=== PATIENT | female | born 1950 | race Caucasian/White ===

== ENCOUNTER → 2017-01-10 | Outpatient (CLI) | payer BC, MEDICARE, OTHER ==
[~2017-01-10] MED LIST: ALLOPURINOL300 MG PO; AMITIZA24 MCG PO; B 12 SQ; CIPRO 500MG TA500 MG PO; CLIMARA 0.1 PATCH.WK TD; CLIMARA0.05 MG/24 TD; DOMPERIDONE; FLONASE NASAL S16 GM NS; GLUCOSAMINE PO; HCTZ 25MG TAB25 MG PO; LOPRESSOR 225 MG/TAB PO; LOPRESSOR 550 MG/TAB PO; LUTEIN20 MG PO; NEXIUM 40MG40 MG PO; NEXIUM40 MG PO; OMEGA 31000 MG PO; SODIUM BICARBO650 MG PO; UROCIT; UROCIT-K 1010 MEQ PO; VITAMIN D 50,1.25 MG PO; ZOFRAN 4MG T4 MG/TAB PO; ZYLOPRIM 300MG300 MG PO; ZYRTEC 10MG PO; ZYRTEC 10MG10 MG PO; [UNRECOGNIZED DRUG - CODE] PO; [UNRECOGNIZED DRUG - OTHER] PO
== END ==
LOC: COL.RAD 07:18
DX: R10.2 Pelvic and perineal pain (principal); R14.0 Abdominal distension (gaseous); Z90.710 Acquired absence of both cervix and uterus

== ENCOUNTER 2019-11-30 13:00 | Outpatient (RCR) | payer MEDICARE, OTHER ==
[2019-11-29 16:20] VITALS: BP 107/64; PULSE 66; TEMP 98
[2019-11-30] VITALS (10 sets, daily range): BP systolic 89–115; BP diastolic 52–74; PULSE 60–66; TEMP 98.4–98.7
[~2019-11-30] VITALS: Ht 167.6 cm; Wt 64.0 kg
[~2019-11-30 13:00] MED LIST changes: +ALDACTONE 25MG25 M1 PO; +BILBERRY EXTRAC80 MG PO; +BONIVA150 MG PO; +K-DUR 10 MEQ T10 MEQ PO; +MASON NATURAL2000 IU PO; +NATURAL E400 IU PO; +NEURONTIN100 MG/CAP PO; +PRILOSEC 20MG20 MG PO; +RESTASIS 60VL OU; +SYNTHROID 0.10.15 MG PO; +TAMBOCOR 1100 MG/TAB PO; +TOPROL XL 50MG50 MG PO; +TUMS500 MG PO; +ZINC SO4 PO
== END 2019-11-30 18:16 | disposition home or self-care (01) ==
LOC: EUO 13:00
DX: D72.819 Decreased white blood cell count, unspecified (principal); D64.9 Anemia, unspecified
CPT/HCPCS: J7050; P9040

== ENCOUNTER 2020-01-07 12:59 | Outpatient (RCR) | payer MEDICARE, OTHER ==
[2020-01-07] VITALS (10 sets, daily range): BP systolic 81–116; BP diastolic 53–73; PULSE 60–68; TEMP 97.7–97.8
[~2020-01-07] VITALS: Ht 167.6 cm; Wt 46.0 kg
== END 2020-01-07 17:44 | disposition home or self-care (01) ==
LOC: EUO 12:59
DX: D46.A Refractory cytopenia with multilineage dysplasia (principal)
CPT/HCPCS: J7050; P9040

== ENCOUNTER → 2020-01-17 | Outpatient (CLI) | payer MEDICARE, OTHER ==
--- NOTE | 2020-01-13 09:32 | NUR ---
lmom of all information and asked for a return call
[~2020-01-17] VITALS: Ht 167.6 cm; Wt 63.7 kg
[~2020-01-17] MED LIST changes: +CELEBREX 1100 MG/CAP PO
[2020-01-17 13:43] VITALS: BP 108/66; PULSE 67
[2020-01-17 14:30] VITALS: BP 109/66; PULSE 67
[2020-01-17 14:45] VITALS: BP 110/56; PULSE 63
[2020-01-17 15:00] VITALS: BP 95/58; PULSE 67
[2020-01-17 15:30] VITALS: BP 95/60; PULSE 62
== END ==
LOC: COL.RAD 13:00
DX: M48.062 Spinal stenosis, lumbar region with neurogenic claudication (principal); M47.816 Spondylosis without myelopathy or radiculopathy, lumbar region; M51.17 Intervertebral disc disorders with radiculopathy, lumbosacral region; M51.16 Intervertebral disc disorders with radiculopathy, lumbar region
CPT/HCPCS: Q9965

== ENCOUNTER 2020-01-24 13:56 | Emergency (ER) | payer MEDICARE, OTHER ==
[~2020-01-24] VITALS: Ht 170.2 cm; Wt 60.9 kg
[2020-01-24 14:12] VITALS: TEMP 98.7
[2020-01-24 15:00] LABS: MEAN CELL VOLUME 100 fl (80.0-100.0); MEAN CORPUSCULAR HEMOGLOBIN 34 pg (27.0-31.0); MEAN CORPUSCULAR HGB CONC 33 g/dl (33.0-37.0); MEAN PLATELET VOLUME 10.2 fl (7.4-10.4); PLATELET COUNT 281 K/mm3 (130-400); PROTHROMBIN TIME 10.7 SECONDS (9.7-12.8); RED BLOOD COUNT 2.98 M/mm3 (4.10-5.30); REDCELL DISTRIBUTION WIDTH-CV 21.3 % (11.5-14.5)
[2020-01-24 15:03] LABS: PARTIAL THROMBOPLASTIN TIME 32.9 SECONDS (26.0-37.0)
[2020-01-24 15:05] LABS: HEMATOCRIT 29.9 % (37.0-47.0)
[2020-01-24 15:07] LABS: ALANINE AMINOTRANSFERASE 24 U/L (4-34); ALBUMIN 4.6 gm/dL (3.5-5.0); ALKALINE PHOSPHATASE 102 U/L (50-136); ANION GAP 11 mmol/L (7-16); AST,SGOT 29 U/L (15-37); BILIRUBIN,TOTAL 0.6 mg/dL (0.0-1.0); BLOOD UREA NITROGEN 20 mg/dL (7-17); CALCIUM 9.3 mg/dL (8.4-10.2); CARBON DIOXIDE 23 mmol/L (22-30); CHLORIDE 98 mmol/L (98-107); CREATININE, serum 0.96 (0.52-1.25); GLUCOSE 102 mg/dL (74-106); POTASSIUM 3.7 mmol/L (3.4-5.0); SODIUM 132 mmol/L (137-145); TOTAL PROTEIN 7.3 gm/dL (6.4-8.2)
[2020-01-24 15:10] LABS: C-REACTIVE PROTEIN < 0.5 mg/dL (0.0-0.9)
[2020-01-24 15:18] LABS: TROPONIN-I < 0.012 ng/mL (0.000-0.035)
[2020-01-24 15:36] LABS: BAND 6 % (0-10); LYMPHOCYTE 54 % (20.0-51.0); NEUTROPHILS 34 % (42.0-75.2)
[2020-01-24 15:37] LABS: ANISOCYTOSIS 2+; HYPOCHROMIA 1+; PLATELET ESTIMATE NORMAL (NORMAL)
[2020-01-24] MEDS ORDERED: NORCO 325 MG-51 TAB PO (16:35)
[2020-01-24] MEDS ORDERED: OMNICEF 300MG300 MG PO (16:35)
[2020-01-24] MEDS ORDERED: NYSTATIN OR100 MU/ML PO (16:35)
[2020-01-24 17:52] VITALS: BP 105/71; PULSE 77
== END 2020-01-24 17:52 | disposition home or self-care (01) ==
LOC: COL.ER 13:56
PROVIDERS: Emergency Medicine
DX: G97.1 Other reaction to spinal and lumbar puncture (principal); D46.9 Myelodysplastic syndrome, unspecified; D70.9 Neutropenia, unspecified; I10 Essential (primary) hypertension; E03.9 Hypothyroidism, unspecified; Z86.79 Personal history of other diseases of the circulatory system; Z88.8 Allergy status to other drugs, medicaments and biological substances; Z88.5 Allergy status to narcotic agent
CPT/HCPCS: J0696; J2060; J2405; J3010; J7030

== ENCOUNTER 2020-02-17 14:31 | Outpatient (RCR) | payer MEDICARE, OTHER ==
[2020-02-17] VITALS (9 sets, daily range): BP systolic 91–109; BP diastolic 63–72; PULSE 64–91; TEMP 97.7–98.7
[~2020-02-17] VITALS: Ht 170.2 cm; Wt 63.9 kg
[~2020-02-17 14:31] MED LIST changes: +NORCO 325 MG-51 TAB PO; +NYSTATIN OR100 MU/ML PO; +OMNICEF 300MG300 MG PO; -SYNTHROID 0.10.15 MG PO; +SYNTHROID0.175 MG PO; +TOPROL XL 25MG25 MG PO; -TOPROL XL 50MG50 MG PO
== END 2020-02-17 18:34 | disposition home or self-care (01) ==
LOC: EUO 14:31
DX: D46.A Refractory cytopenia with multilineage dysplasia (principal); D72.819 Decreased white blood cell count, unspecified
CPT/HCPCS: J7050; P9040

== ENCOUNTER 2020-03-25 13:02 | Outpatient (RCR) | payer MEDICARE, OTHER ==
[~2020-03-25] VITALS: Ht 170.2 cm; Wt 62.5 kg
[2020-03-25] VITALS (9 sets, daily range): BP systolic 81–107; BP diastolic 46–66; PULSE 60–76; TEMP 97.5–98.2
[2020-03-25] MEDS ORDERED: SYNTHROID0.2 MG/TAB PO (13:46)
[2020-03-25] MEDS ORDERED: LYRICA200 MG PO (13:48)
--- NOTE | 2020-03-25 14:45 | NUR ---
First unit of irradiated PRBC's started at 60ml/hr, verified by CRISTINA Stoddard. Patient sitting up in bed eating sandwich. Denies needs or concerns.
--- NOTE | 2020-03-25 14:59 | NUR ---
Patient tolerates initial 15 minutes of transfusion without complications. Rate increased to 150mL/hr. Patient denies additional needs.
--- NOTE | 2020-03-25 15:44 | NUR ---
Patient lying in bed with eyes closed. Respirations even and unlabored. No signs or symptoms of discomfort noted at this time.
--- NOTE | 2020-03-25 16:33 | NUR ---
Patient tolerates first unit of blood without complications. Begin second unit of irradiated PRBC's, verified by CRISTINA Stoddard. Patient resting in bed with eyes closed. Says that she feels good. Closes eyes and goes to sleep. Denies additional needs.
--- NOTE | 2020-03-25 16:43 | NUR ---
Patient tolerates intial 15 minutes of second blood transfusion without complications. Rate increased to 150mL/hr.
--- NOTE | 2020-03-25 18:09 | NUR ---
Sitting up in bed, just finished dinner. Patient says that she is feeling good at this time. Denies additional needs.
--- NOTE | 2020-03-25 18:25 | NUR ---
Infusion completed. Patient tolerates without complications. Patient spouse in parking lot to pick patient up. IV dc'd, see intervention. Patient assisted out via wheel chair.
--- NOTE | 2020-03-25 18:38 | NUR ---
Patient assisted out to POV via wheelchair with all belongings.
== END 2020-03-25 18:38 | disposition home or self-care (01) ==
LOC: EUO 13:02 → JCC 13:11 → EUO 18:38
DX: D46.A Refractory cytopenia with multilineage dysplasia (principal)
CPT/HCPCS: OP; J7050; P9040

== ENCOUNTER 2020-05-04 20:26 | Inpatient (IN) | payer MEDICARE, OTHER ==
[~2020-05-04] VITALS: Ht 170.2 cm; Wt 63.5 kg
[~2020-05-04 20:26] MED LIST changes: +LYRICA200 MG PO
[2020-05-04 22:24] LABS: COLLECTION METHOD CATHETER
[2020-05-04 22:27] LABS: MEAN CELL VOLUME 106 fl (80.0-100.0); MEAN CORPUSCULAR HGB CONC 33 g/dl (33.0-37.0); MEAN PLATELET VOLUME 12.5 fl (7.4-10.4); PLATELET COUNT 147 K/mm3 (130-400); RED BLOOD COUNT 2.42 M/mm3 (4.10-5.30); REDCELL DISTRIBUTION WIDTH-CV 18.6 % (11.5-14.5)
[2020-05-04 22:46] LABS: BUDDING YEAST Present /hpf; MUCOUS Present /lpf; PH 6 (5-8); SQUAMOUS EPITHELIAL 0-2 /hpf; URINE APPEARANCE Clear; URINE BACTERIA None Seen /hpf; URINE BILIRUBIN Negative (NEGATIVE); URINE BLOOD Negative (NEGATIVE); URINE COLOR Yellow; URINE GLUCOSE Negative (NEGATIVE); URINE KETONE Negative (NEGATIVE); URINE LEUKOCYTE ESTERASE Trace (NEGATIVE); URINE NITRATE Negative (NEGATIVE); URINE PROTEIN(semi-quant) 2+ (NEGATIVE); URINE RBC 0-2 /hpf; URINE UROBILINOGEN Negative (NEGATIVE)
[2020-05-04 22:48] LABS: ALBUMIN 3.8 gm/dL (3.5-5.0); BILIRUBIN,TOTAL 0.7 mg/dL (0.0-1.0); CREATININE, serum 1.77 (0.52-1.25); HEMATOCRIT 25.7 % (37.0-47.0); HEMOGLOBIN 8.4 g/dl (12.5-16.0); MEAN CORPUSCULAR HEMOGLOBIN 35 pg (27.0-31.0); POTASSIUM 4.3 mmol/L (3.4-5.0); TOTAL PROTEIN 6.9 gm/dL (6.4-8.2)
[2020-05-04 23:04] LABS: ANISOCYTOSIS 1+; BAND 11 % (0-10); HYPOCHROMIA 1+; LYMPHOCYTE 4 % (20.0-51.0); NEUTROPHILS 77 % (42.0-75.2); PLATELET ESTIMATE NORMAL (NORMAL)
[2020-05-04 23:05] LABS: OVALOCYTES 1+; STOMATOCYTE 1+
[2020-05-04 23:09] LABS: C-REACTIVE PROTEIN 20.5 mg/dL (0.0-0.9)
[2020-05-05] VITALS (7 sets, daily range): BP systolic 89–111; BP diastolic 58–70; PULSE 69–87; TEMP 98–99.8
--- NOTE | 2020-05-05 04:00 | NUR ---
Patient up from ER. Alert and oriented x 3. Assessment complete. Patient oriented to room. INT to RAC without complicatins. Novak to DD with clear yellow urine present. Patient denie pain at this time. SCDs to BLE. Tele placed on patient. Denies furhter needs at this time.
--- NOTE | 2020-05-05 06:05 | NUR ---
Patient doing well throughout the night. Novak maintained to DD with clear yellow urine present. Fluids infusing per orders. Denies further needs at this time. Will report off to night warehouse manager.
[2020-05-05 07:09] LABS: BASO % 0.9 % (0.0-2.0); EOS # 0.1 (0.0-0.7); EOS % 3.1 % (0-4.0); GRAN # 2.2 (1.4-6.5); GRAN % 68.9 % (42.2-75.2); LYMPH # 0.3 (1.2-3.4); LYMPH % 10.2 % (20.0-51.0); MEAN CORPUSCULAR HGB CONC 32 g/dl (33.0-37.0); MEAN PLATELET VOLUME 11.9 fl (7.4-10.4); MONO # 0.5 (0.1-0.6); MONO % 16.6 % (1.7-9.3); PLATELET COUNT 133 K/mm3 (130-400); RED BLOOD COUNT 2.06 M/mm3 (4.10-5.30); REDCELL DISTRIBUTION WIDTH-CV 18.6 % (11.5-14.5)
[2020-05-05 07:11] LABS: HEMATOCRIT 22.8 % (37.0-47.0); HEMOGLOBIN 7.2 g/dl (12.5-16.0); MEAN CELL VOLUME 111 fl (80.0-100.0); MEAN CORPUSCULAR HEMOGLOBIN 35 pg (27.0-31.0)
[2020-05-05 07:13] LABS: CALCIUM 8.4 mg/dL (8.4-10.2); CREATININE, serum 1.42 (0.52-1.25)
--- NOTE | 2020-05-05 08:03 | NUR ---
Pt sleepy and talks with quiet voice. She reports that she has not felt well since Friday. Diet has decreased and has also not had a bowel movement. She does report her stomach having a burning feeling that wraps around and then goes up towards her throat. Tylenol given as she also reports starting to get a headache. She has ordered some breakfast. Informed her to use the call light if she needs to use the restroom. Call light within reach.
--- NOTE | 2020-05-05 09:45 | NUR ---
Pt has been up to the commode, but was not able to have a bowel movement. Morning medications given. Discussed trying to see her , informed her I would coordinate with her 's nurse. No other needs, will continue to monitor
--- NOTE | 2020-05-05 11:08 | NUR ---
Card Fixer attended clinical rounds with the team. Specialist the patient sees are Dr. Serra and Dr. Rushing. Oncology consulted. PT/OT ordered.
[2020-05-05 13:08] LABS: HEMATOCRIT 25.6 % (37.0-47.0); HEMOGLOBIN 8.1 g/dl (12.5-16.0)
--- NOTE | 2020-05-05 14:33 | NUR ---
Pt feeling nauseated at this time. Zofran offered and given. Pts son is with her at this time. No other needs, will continue to monitor.
--- NOTE | 2020-05-05 15:40 | NUR ---
Tile And Marble Setter met with the patient and the patient's son, Brooks to complete intake. The patient lives in [place] with her , Byron. The patient has been wheelchair bound about for the last week. The patient receives assistance from Byron. The patient receives medications and medical care at [facility]. The patient does not have advanced directives and was no not interested in DPOA-HC form at this time. MARIE discussed the discharge plan and post acute rehab. The patient was agreeance to sending a referral to [facility]. She did not want to send any other referrals at this time. MARIE consulted [facility] Director. Jennie reports she cannot make any decisions or admissions until Friday. MARIE collaborated the above information with the patient's nurse.
--- NOTE | 2020-05-05 18:01 | NUR ---
Pt doing well at this time. She is tired and states that she hopes she is able to sleep tonight. She reports going the last several nights with no sleep. Tylenol given for fever and feeling hot/cold. Son and getting ready to leave for the night. No other issues, will continue to monitor
[2020-05-05 18:36] LABS: FOLATE (FOLIC ACID) 11.1 ng/mL (7.0-31.4)
--- NOTE | 2020-05-05 20:00 | NUR ---
Report received, assumed care for shift coordinator. Assessment complete. A&Ox3. VS remain stable. Denies pain/nausea/shortness of breath. Assisted up to bathroom with 2 assist/gait belt/walker. Tolerated well but continuous coaching needed to pick of feet. States her lower extemities are very mumb and coaching helps. Plan of care discussed for this shift to include HS meds/antibiotics/IV fluids/calling for questions/concerns. Verbalizes understanding/denies questions/concerns. Call light in reach. Will monitor.
[2020-05-05 20:10] LABS: HEMOGLOBIN 7.3 g/dl (12.5-16.0)
[2020-05-05] MEDS ORDERED: ATIVAN 1MG T1 MG/TAB PO (20:37)
--- NOTE | 2020-05-05 20:45 | NUR ---
Pt requesting Ativan-states she acuña been prescribed it few months ago and it helps her feel less anxious/rest better. Hospitalist-TOÑA Regan notified-new orders received. This nurse to room to discuss with patient and she is already sleeping. Will hold one time dose for later.
[2020-05-06] VITALS (8 sets, daily range): BP systolic 98–121; BP diastolic 54–74; PULSE 57–90; TEMP 97.8–98.8
--- NOTE | 2020-05-06 | NUR ---
Called stating she slept well for two hours but is wide awake with anxiety due to sleeping alone. Ativan ordered for HS given per dr order.
--- NOTE | 2020-05-06 02:27 | NUR ---
Resting eyes closed. NO s/s of pain/discomfort noted.
--- NOTE | 2020-05-06 06:38 | NUR ---
Rested well this shift after receiving ativan dose. Denied pain/nausea/shortness of breath. VS remained stable. Call light within reach. Will continue to monitor.
[2020-05-06 07:13] LABS: MEAN CELL VOLUME 110 fl (80.0-100.0); MEAN CORPUSCULAR HGB CONC 32 g/dl (33.0-37.0); MEAN PLATELET VOLUME 12.9 fl (7.4-10.4); PLATELET COUNT 127 K/mm3 (130-400); RED BLOOD COUNT 2.01 M/mm3 (4.10-5.30); REDCELL DISTRIBUTION WIDTH-CV 18.6 % (11.5-14.5)
[2020-05-06 07:15] LABS: HEMOGLOBIN 7.1 g/dl (12.5-16.0); MEAN CORPUSCULAR HEMOGLOBIN 35 pg (27.0-31.0)
[2020-05-06 07:20] LABS: ALBUMIN 2.9 gm/dL (3.5-5.0); BILIRUBIN,TOTAL 0.6 mg/dL (0.0-1.0); CALCIUM 8.4 mg/dL (8.4-10.2); CREATININE, serum 1.16 (0.52-1.25); POTASSIUM 4.1 mmol/L (3.4-5.0); TOTAL PROTEIN 5.6 gm/dL (6.4-8.2)
--- NOTE | 2020-05-06 08:00 | NUR ---
Pt sitting up in the chair upon entering room. She has her breakfast with her. She did ambulate to the restroom and then to the chair. She reports feeling better this morning.
--- NOTE | 2020-05-06 11:01 | NUR ---
PT in working with patient. Blood started at this time at 60ml/hr.
--- NOTE | 2020-05-06 13:15 | NUR ---
Pt continues to do well, blood infusing. She continues to eat lunch slowly. at bedside. Dr Rushing has been in to see patient. No needs verbalized, will continue to monitor
--- NOTE | 2020-05-06 13:16 | NUR ---
First visit from the intensivist. No needs right now.
--- NOTE | 2020-05-06 14:10 | NUR ---
Blood finished at this time. Pt tolerated with no signs of reaction.
[2020-05-06 14:36] LABS: HEMATOCRIT 26.9 % (37.0-47.0); HEMOGLOBIN 8.8 g/dl (12.5-16.0)
--- NOTE | 2020-05-06 15:02 | NUR ---
Scarlet removed, assisted pt to the restroom. She did well with one assist. Call light within reach
--- NOTE | 2020-05-06 15:36 | NUR ---
Pt back in bed. She did void while she was in the restroom, no hat in place yet as boss was just removed prior to this. No complaints, will continue to monitor
--- NOTE | 2020-05-06 20:00 | NUR ---
Report received, assumed care for date night sitter. Assessment complete. VS stable. A&Ox3. Denies shortness of breath/nausea. States pain has increased to bilat lower extremities since lyrica dose was reduced. Denies pain otherwise. Has been voiding since boss cath DCd. Plan of care discussed for this shift to include HS meds/antibiotics/calling for questions/concerns. Verbalizes understanding. Call light in reach. Will monitor.
--- NOTE | 2020-05-06 20:01 | NUR ---
Called requesting an ativan stating hurt feet are bothering her and she is getting very anxious. Hospitalist-TOÑA Regan notified and new orders received.
[2020-05-07 00:02] VITALS: BP 119/71; PULSE 64; TEMP 98.4
[2020-05-07 04:30] VITALS: BP 121/68; PULSE 85; TEMP 98.9
[2020-05-07 06:38] LABS: MEAN CORPUSCULAR HGB CONC 32 g/dl (33.0-37.0); MEAN PLATELET VOLUME 12.7 fl (7.4-10.4); PLATELET COUNT 146 K/mm3 (130-400); RED BLOOD COUNT 2.57 M/mm3 (4.10-5.30); REDCELL DISTRIBUTION WIDTH-CV 22.8 % (11.5-14.5)
[2020-05-07 06:41] LABS: CALCIUM 8.7 mg/dL (8.4-10.2); CREATININE, serum 1.08 (0.52-1.25); POTASSIUM 3.8 mmol/L (3.4-5.0)
[2020-05-07 07:12] LABS: HEMATOCRIT 26.3 % (37.0-47.0); HEMOGLOBIN 8.5 g/dl (12.5-16.0); MEAN CELL VOLUME 102 fl (80.0-100.0); MEAN CORPUSCULAR HEMOGLOBIN 33 pg (27.0-31.0)
[2020-05-07 07:24] VITALS: BP 126/74; PULSE 75; TEMP 97.9
--- NOTE | 2020-05-07 07:42 | NUR ---
PT LAYING IN BED AT THIS TIME. DENIES ANY DISCOMFORT, DOES STATE SHE HAS A MILD HEADACHE. ASSESSMENT COMPLETED. NO FURTHER CONCERNS AT THIS TIME. CALL LIGHT WITHIN REACH.
[2020-05-07 11:12] VITALS: BP 113/75; PULSE 78; TEMP 97.8
[2020-05-07 12:31] LABS: AMYLASE 89 U/L (30-110); LIPASE 200 U/L (23-300)
[2020-05-07 15:55] VITALS: BP 128/82; PULSE 80; TEMP 97.9
[2020-05-07 19:28] VITALS: BP 117/65; PULSE 105; TEMP 97.7
--- NOTE | 2020-05-07 19:51 | NUR ---
PT HAD UNEVENTFUL DAY. NO CONCERNS. REPORT GIVEN CRISTINA IBARRA.
--- NOTE | 2020-05-07 20:29 | NUR ---
Patient sitting up in bed and watching TV upon enter the room. Shift assessment completed. Patient alert and oriented. Patient denies chest pain, SOB, N/V, or dizziness. Patient reports chronic bilateral feet pain 05/24. Scheduled Lyrica and other meds given per MAY. Encouraged patient to call the nurse if pain gets worse. Patient verbalized understanding. Assisted patient to go to bathroom. Patient ambulates with a walker with unsteady gait. 1 person maximum assist needed for transfer. Call light within reach. Patient denies further needs at this time.
[2020-05-08 00:10] VITALS: BP 122/75; PULSE 84; TEMP 98
[2020-05-08 03:46] VITALS: BP 119/74; PULSE 85; TEMP 97.8
[2020-05-08 06:49] LABS: MEAN CELL VOLUME 102 fl (80.0-100.0); MEAN CORPUSCULAR HGB CONC 32 g/dl (33.0-37.0); MEAN PLATELET VOLUME 12.7 fl (7.4-10.4); PLATELET COUNT 168 K/mm3 (130-400); RED BLOOD COUNT 2.64 M/mm3 (4.10-5.30)
[2020-05-08 06:59] LABS: CALCIUM 8.8 mg/dL (8.4-10.2); CREATININE, serum 1.02 (0.52-1.25); POTASSIUM 3.8 mmol/L (3.4-5.0)
[2020-05-08 07:38] LABS: HEMOGLOBIN 8.7 g/dl (12.5-16.0); MEAN CORPUSCULAR HEMOGLOBIN 33 pg (27.0-31.0)
[2020-05-08 07:39] VITALS: BP 124/70; PULSE 79; TEMP 97.9
[2020-05-08 08:25] LABS: ANISOCYTOSIS 1+; BAND 4 % (0-10); EOSINOPHIL 7 % (0-4); LYMPHOCYTE 33 % (20.0-51.0); NEUTROPHILS 41 % (42.0-75.2); PLATELET ESTIMATE NORMAL (NORMAL)
--- NOTE | 2020-05-08 09:03 | NUR ---
Pt doing well this morning. She states that she didn't get much sleep as she kept waking up. PT and OT have both worked with her. She is NPO for procedure, currently sitting up in the chair. Pills given with a sip of water. No other needs, will continue to monitor
--- NOTE | 2020-05-08 10:35 | NUR ---
Initial visit; Patient thanked Furniture Finisher Apprentice for offering prayer and God's blessings. Furniture Finisher Apprentice will keep Shelley in her prayers.
[2020-05-08 11:06] VITALS: BP 111/70; PULSE 85; TEMP 97.6
--- NOTE | 2020-05-08 11:48 | NUR ---
Pt continues to do well, will continue to monitor
--- NOTE | 2020-05-08 12:44 | NUR ---
Hair Assistant collaborated with Jennie, IPR Director who met with patient and can tentatively accept. SW will continue to follow.
--- NOTE | 2020-05-08 14:55 | NUR ---
Pt off the floor for MRI and LP
--- NOTE | 2020-05-08 17:15 | NUR ---
Pt back from MRI/LP around 1700. She is alert and oriented. in the room. She stated that she is cold, warm blanket given to her. Reminded that she needs to lay flat for an hour, so until 1800. No questions, will continue to monitor
[2020-05-08 17:39] LABS: CSF APPEARANCE CLEAR; CSF COLOR COLORLESS
[2020-05-08 17:40] LABS: CSF RBC 13 /mm3 (0-0)
--- NOTE | 2020-05-08 17:53 | NUR ---
IV right forearm did not flush and patient reported that it was hurting when I attempted to flush. New IV started by CRISTINA Russell
[2020-05-08 18:22] LABS: TOTAL PROTEIN,CSF 94 mg/dL (15-45)
[2020-05-08 19:43] VITALS: BP 100/65; PULSE 129; TEMP 97.5
[2020-05-08 19:56] LABS: CSF MONONUCLEAR 49 % (70-100); CSF POLYMORPHONUCLEAR 1 % (0-6)
--- NOTE | 2020-05-08 20:00 | NUR ---
Assessment complete. Robinson currently at bedside; Patient is awake in bed, alert and oriented. She complains of severe neuropathy pain in her feet and legs. HR is tachy and regular, lungs are clear, no edema is present. Zosyn currently infusing into left forearm IV. No new concerns, call light in reach.
[2020-05-08 23:47] VITALS: BP 108/67; PULSE 90; TEMP 98
[2020-05-09 03:26] VITALS: BP 121/76; PULSE 81; TEMP 97.7
--- NOTE | 2020-05-09 07:00 | NUR ---
bedside shift report received from CRISTINA Jin
[2020-05-09 07:01] LABS: MEAN CELL VOLUME 104 fl (80.0-100.0); MEAN CORPUSCULAR HGB CONC 32 g/dl (33.0-37.0); MEAN PLATELET VOLUME 12.4 fl (7.4-10.4); PLATELET COUNT 181 K/mm3 (130-400); RED BLOOD COUNT 2.53 M/mm3 (4.10-5.30); REDCELL DISTRIBUTION WIDTH-CV 21.4 % (11.5-14.5)
[2020-05-09 07:09] LABS: HEMATOCRIT 26.2 % (37.0-47.0); HEMOGLOBIN 8.3 g/dl (12.5-16.0); MEAN CORPUSCULAR HEMOGLOBIN 33 pg (27.0-31.0)
[2020-05-09 07:19] LABS: CALCIUM 8.6 mg/dL (8.4-10.2); CREATININE, serum 1.11 (0.52-1.25); POTASSIUM 3.8 mmol/L (3.4-5.0)
[2020-05-09 07:35] VITALS: BP 114/67; PULSE 111; TEMP 97.5
--- NOTE | 2020-05-09 08:20 | NUR ---
awake resting in bed, earlier had large loose diarrhea stool, will have breakfst
--- NOTE | 2020-05-09 09:15 | NUR ---
physical therapy was in and worked with patient, she states she felt a little less weak today, is now resting in chair, full assessment completed, see interventions for further info,
--- NOTE | 2020-05-09 10:32 | NUR ---
UNSTACKER in and assisting her with taking a shower
[2020-05-09 10:51] LABS: ANISOCYTOSIS 2+; PLATELET ESTIMATE NORMAL (NORMAL)
[2020-05-09 10:53] LABS: HYPOCHROMIA 2+
--- NOTE | 2020-05-09 11:00 | NUR ---
back to bed after shower
--- NOTE | 2020-05-09 11:15 | NUR ---
Dr Dominique in to see patient
[2020-05-09 11:16] LABS: EOSINOPHIL 14 % (0-4)
[2020-05-09 11:17] LABS: BAND 5 % (0-10); LYMPHOCYTE 35 % (20.0-51.0)
[2020-05-09 11:18] LABS: BASOPHIL 2 % (0-2); NEUTROPHILS 31 % (42.0-75.2)
[2020-05-09 11:40] VITALS: BP 126/77; PULSE 77; TEMP 97.5
--- NOTE | 2020-05-09 12:00 | NUR ---
appears to be dozing, in bed with eyes closed, resp quiet and easy, at bedside
--- NOTE | 2020-05-09 13:10 | NUR ---
appears to be sleeping, at bedside and said he tried to wake her and she didn't wake up, called her name and shook her shoulder and she aroused quickly, encouraged to have lunch
--- NOTE | 2020-05-09 13:30 | NUR ---
occuapation therapy in visiting with patient
[2020-05-09 14:10] LABS: ANGIOTENSIN CONVERTING ENZYME 30 U/L (16 - 85)
--- NOTE | 2020-05-09 14:58 | NUR ---
in bed visiting with and watching TV
--- NOTE | 2020-05-09 15:58 | NUR ---
in bed talking on phone, denies needs
[2020-05-09 16:00] VITALS: BP 98/62; PULSE 110; TEMP 97.3
--- NOTE | 2020-05-09 17:02 | NUR ---
Rn Enterostomal attended clinical rounds with the team. Due to high census, [facility] cannot accept patient at this time. SW followed up with patient and patient's , Ray about other rehab options. Patient and Ray state that they will not consider any rehab options with limited visitation policies. SW contacted the three local SNFs and reviewed their visitation policies with patient and Ray who decline to have referrals sent there. SW discussed [facility] as they are currently allowing one visitor daily per patient. Patient is agreeable to have referral sent. MARIE contacted Alba at [facility] and gave referral. SW will continue to follow.
[2020-05-09 18:43] LABS: CADMIUM BLOOD <0.2 ng/mL (<5.0); LEAD,SERUM** <1.0 mcg/dL (<5.0); MERCURY,SERUM <1 ng/mL (<10)
--- NOTE | 2020-05-09 18:57 | NUR ---
bedside shift report given to CRISTINA Pascal
[2020-05-09 19:29] VITALS: BP 117/70; PULSE 90; TEMP 98
--- NOTE | 2020-05-09 20:23 | NUR ---
Shift assessment completed and charted. Patient alert and oriented. Patient denies chest pain, SOB/dyspnea, or N/V. Patient reports she has chronic pain to her feet. Rating pain 7-8 out of 10 at this time. Scheduled pain med given. Patient reported she had loose stool this morning and requested to hold stool softner tonight. Amitiza not given per patient request. Ice-water provided per patient request. Call light within reach. Patient denies further needs at this time.
[2020-05-10 20:00] VITALS: BP 97/66; PULSE 104; TEMP 97.6
[2020-05-10 21:25] LABS: KAPPA FREE LIGHT CHAIN-SERUM 36.34 mg/L (()); KAPPA LAMBDA RATIO 1.12 ratio (())
[2020-05-10 21:25] LABS: HSV 2 DNA PCR QUAL Not Detected (())
[2020-05-11] VITALS (12 sets, daily range): BP systolic 110–138; BP diastolic 61–75; PULSE 79–111; TEMP 97.4–99.8
[2020-05-11 07:12] LABS: MEAN CELL VOLUME 104 fl (80.0-100.0); MEAN CORPUSCULAR HGB CONC 32 g/dl (33.0-37.0); MEAN PLATELET VOLUME 12.1 fl (7.4-10.4); PLATELET COUNT 249 K/mm3 (130-400); RED BLOOD COUNT 2.86 M/mm3 (4.10-5.30)
[2020-05-11 07:17] LABS: HEMATOCRIT 29.6 % (37.0-47.0); HEMOGLOBIN 9.4 g/dl (12.5-16.0); MEAN CORPUSCULAR HEMOGLOBIN 33 pg (27.0-31.0)
[2020-05-11 07:33] LABS: CALCIUM 8.8 mg/dL (8.4-10.2); CREATININE, serum 1.03 (0.52-1.25); POTASSIUM 3.8 mmol/L (3.4-5.0)
[2020-05-11 07:58] LABS: BAND 13 % (0-10); LYMPHOCYTE 7 % (20.0-51.0); NEUTROPHILS 78 % (42.0-75.2)
[2020-05-11 07:59] LABS: HYPOCHROMIA 2+; PLATELET ESTIMATE NORMAL (NORMAL)
[2020-05-11 08:00] LABS: ANISOCYTOSIS 2+
--- NOTE | 2020-05-11 08:30 | NUR ---
Patient sitting up in bed, A&Ox3. VSS. IV CDI. Reports pain in legs that she always has. Nurse assisted with breakfast tray. No further needs expressed from the patient. Call light within reach. Bed alarm on
--- NOTE | 2020-05-11 08:59 | NUR ---
(late entry 05/10) Director Of Intelligence contacted Alba with [facility] regarding referral. The team was to review the referral.
[2020-05-11 10:16] LABS: LYME DISEASE ANTIBODIES Negative (Negative)
[2020-05-11 14:41] LABS: CREATININE, serum 0.86 (0.52-1.25); POTASSIUM 3.8 mmol/L (3.4-5.0)
[2020-05-11 14:47] LABS: CREATININE, serum 0.99 (0.52-1.25); POTASSIUM 3.9 mmol/L (3.4-5.0)
--- NOTE | 2020-05-11 16:15 | NUR ---
Alba with [facility] reports they cannot accept the patient for post acute rehab.
--- NOTE | 2020-05-11 18:24 | NUR ---
Patient had an uneventful day, has been at the bedside most of the shift. A&Ox4. VSS. IV CDI, fluids infusing. Started IGG infusion and tolerating well. No further needs expressed from the patient. Call light within reach
[2020-05-11 23:11] LABS: HEMATOCRIT 29.8 % (37.0-47.0); HEMOGLOBIN 9.5 g/dl (12.5-16.0); MEAN CELL VOLUME 105 fl (80.0-100.0); MEAN CORPUSCULAR HEMOGLOBIN 34 pg (27.0-31.0); MEAN CORPUSCULAR HGB CONC 32 g/dl (33.0-37.0); PLATELET COUNT 216 K/mm3 (130-400); RED BLOOD COUNT 2.83 M/mm3 (4.10-5.30); REDCELL DISTRIBUTION WIDTH-CV 21.3 % (11.5-14.5)
[2020-05-11 23:12] LABS: BAND 23 % (0-10); MEAN PLATELET VOLUME 12.3 fl (7.4-10.4)
[2020-05-11 23:13] LABS: ANISOCYTOSIS 1+; EOSINOPHIL 4 % (0-4); HYPOCHROMIA 1+; LYMPHOCYTE 4 % (20.0-51.0); MICROCYTOSIS 1+; NEUTROPHILS 65 % (42.0-75.2); PLATELET ESTIMATE NORMAL (NORMAL)
[2020-05-11 23:16] LABS: RED BLOOD COUNT 2.93 M/mm3 (4.10-5.30)
[2020-05-11 23:17] LABS: BASO # 0.1 (0.0-0.2); BASO % 0.5 % (0.0-2.0); EOS # 0.3 (0.0-0.7); EOS % 1.9 % (0-4.0); HEMOGLOBIN 9.8 g/dl (12.5-16.0); LYMPH # 0.8 (1.2-3.4); LYMPH % 4.5 % (20.0-51.0); MEAN CELL VOLUME 106 fl (80.0-100.0); MEAN CORPUSCULAR HEMOGLOBIN 33 pg (27.0-31.0); MEAN CORPUSCULAR HGB CONC 32 g/dl (33.0-37.0); MEAN PLATELET VOLUME 11.6 fl (7.4-10.4); MONO # 0.5 (0.1-0.6); MONO % 2.9 % (1.7-9.3); PLATELET COUNT 222 K/mm3 (130-400); REDCELL DISTRIBUTION WIDTH-CV 21.3 % (11.5-14.5)
[2020-05-12] VITALS (12 sets, daily range): BP systolic 87–136; BP diastolic 61–83; PULSE 76–109; TEMP 97.4–98.5
[2020-05-12 06:24] LABS: ALBUMIN 3.5 gm/dL (3.5-5.0); BILIRUBIN,TOTAL 0.4 mg/dL (0.0-1.0); CALCIUM 8.8 mg/dL (8.4-10.2); CREATININE, serum 1.07 (0.52-1.25); TOTAL PROTEIN 7.1 gm/dL (6.4-8.2)
[2020-05-12 07:14] LABS: RED BLOOD COUNT 2.77 M/mm3 (4.10-5.30)
[2020-05-12 07:15] LABS: HEMATOCRIT 28.5 % (37.0-47.0); HEMOGLOBIN 9.1 g/dl (12.5-16.0); MEAN CELL VOLUME 103 fl (80.0-100.0); MEAN CORPUSCULAR HEMOGLOBIN 33 pg (27.0-31.0); MEAN CORPUSCULAR HGB CONC 32 g/dl (33.0-37.0); MEAN PLATELET VOLUME 11.8 fl (7.4-10.4); PLATELET COUNT 248 K/mm3 (130-400); REDCELL DISTRIBUTION WIDTH-CV 20.4 % (11.5-14.5)
--- NOTE | 2020-05-12 07:16 | NUR ---
Pt resting with eyes closed, even non labored breathing
[2020-05-12 07:39] LABS: BAND 41 % (0-10); LYMPHOCYTE 20 % (20.0-51.0); NEUTROPHILS 31 % (42.0-75.2)
[2020-05-12 07:40] LABS: ANISOCYTOSIS 2+
[2020-05-12 07:41] LABS: PLATELET ESTIMATE NORMAL (NORMAL)
--- NOTE | 2020-05-12 09:33 | NUR ---
Maren in placing PICC at this time
--- NOTE | 2020-05-12 10:43 | NUR ---
Picc line has been placed. Patient was wanting to take a shower. PT and OT in working with patient right now.
[2020-05-12 11:21] LABS: BETA GLOBULINS (PEP) 0.8 g/dL (0.7-1.2)
--- NOTE | 2020-05-12 11:30 | NUR ---
IVIG started at this time.
--- NOTE | 2020-05-12 11:44 | NUR ---
Dr Mock in to see patient. VSS, at bedside, no questions, will continue to monitor
--- NOTE | 2020-05-12 13:48 | NUR ---
Primary nurse was assisted with [id number] patient care by [facility] ADN student Margie Vásquez and [facility] instructor Barbie Solis RN-BC
--- NOTE | 2020-05-12 18:50 | NUR ---
Pt doing well, no needs verbalized, report given
--- NOTE | 2020-05-12 20:00 | NUR ---
Bedside shift report received from Hayley. Patient is currently awake in bed, at bedside. She is alert and oriented with complaints of leg/feet neuropathy pain 10/10. No edema is present. She ambulates with assistance of 1 with gaitbelt and walker to the restroom. Lung sounds are clear, heart rate is regular rhythm with tachycardic rate. Call light in reach and comfort measures provided. SCD's on bilaterally. Will continue to monitor.
[2020-05-13] VITALS (11 sets, daily range): BP systolic 104–134; BP diastolic 66–77; PULSE 79–116; TEMP 97.7–102.5
[2020-05-13 06:50] LABS: MEAN CELL VOLUME 106 fl (80.0-100.0); MEAN CORPUSCULAR HGB CONC 31 g/dl (33.0-37.0); PLATELET COUNT 225 K/mm3 (130-400); RED BLOOD COUNT 2.74 M/mm3 (4.10-5.30); REDCELL DISTRIBUTION WIDTH-CV 20.4 % (11.5-14.5)
[2020-05-13 07:13] LABS: HEMATOCRIT 29.1 % (37.0-47.0); MEAN CORPUSCULAR HEMOGLOBIN 33 pg (27.0-31.0)
[2020-05-13 07:49] LABS: ANISOCYTOSIS 3+; EOSINOPHIL 7 % (0-4); HYPOCHROMIA 3+; LYMPHOCYTE 8 % (20.0-51.0); NEUTROPHILS 78 % (42.0-75.2); PLATELET ESTIMATE NORMAL (NORMAL)
--- NOTE | 2020-05-13 09:55 | NUR ---
IG started at this time. 156/98, pulse 107, temp 97.6, resp 16. Pt was sitting up in the chair prior to getting it started but reported feeling a little nauseated. Assisted back to bed, reports feeling better. at bedside, will continue to monitor
--- NOTE | 2020-05-13 11:10 | NUR ---
Pt resting with her eyes closed, even non labored breathing. IG increased to 60ml/hr
--- NOTE | 2020-05-13 12:55 | NUR ---
Pt has not been eating much of her meals. She states that she just isn't hungry and nothing tastes good. Encouraged her to eat at least something. Offered protein shakes, she stated that she does not like anything with milk. She stated that the ensure clear tasted okay. One ordered at this time.
--- NOTE | 2020-05-13 16:54 | NUR ---
Pt doing well today. She continues to have the pain in her feet and legs, reports that the Lyrica helps. She continues to have a decreased appetite but is drinking the clear ensure. has been present most of the day. No needs verbalized, will continue to monitor
--- NOTE | 2020-05-13 21:00 | NUR ---
Patient's oral temperature is 102.5 at this time. PRN Tylenol administered. SHILA Wyman notified; New orders obtained for rapid COVID swab, chest xray, blood cultures, and UA. Droplet/contact isolation precautions initiated until tests result. Patient has generalized body aches, her face is flushed, and she is experiencing severe chills. Patient denies new onset SOA or cough. Will continue to monitor.
[2020-05-13 23:29] LABS: COLLECTION METHOD CLEAN CATCH
[2020-05-13 23:37] LABS: MUCOUS Present /lpf; PH 5 (5-8); SQUAMOUS EPITHELIAL 0-2 /hpf; URINE APPEARANCE Turbid; URINE BACTERIA Moderate /hpf; URINE BILIRUBIN Negative (NEGATIVE); URINE BLOOD 1+ (NEGATIVE); URINE COLOR Yellow; URINE GLUCOSE Negative (NEGATIVE); URINE KETONE Negative (NEGATIVE); URINE LEUKOCYTE ESTERASE 3+ (NEGATIVE); URINE NITRATE Negative (NEGATIVE); URINE PROTEIN(semi-quant) 3+ (NEGATIVE); URINE UROBILINOGEN Negative (NEGATIVE); URINE WBC >50 /hpf
[2020-05-14 00:10] VITALS: BP 114/74; PULSE 88; TEMP 99.7
[2020-05-14 04:33] VITALS: BP 130/82; PULSE 87; TEMP 98.9
--- NOTE | 2020-05-14 06:32 | NUR ---
Patient has had complaints of body aches and a headache throughout the night. This, along with fevers, have been treated with Tylenol. Patient states she also had an episode of nausea overnight which has subsided without medication. Patient currently sleeping in bed. Call light in reach.
[2020-05-14 07:32] VITALS: BP 110/64; PULSE 85; TEMP 98.7
[2020-05-14 07:42] LABS: HEMOGLOBIN 9.7 g/dl (12.5-16.0); MEAN CELL VOLUME 102 fl (80.0-100.0); MEAN CORPUSCULAR HEMOGLOBIN 33 pg (27.0-31.0); MEAN CORPUSCULAR HGB CONC 32 g/dl (33.0-37.0); MEAN PLATELET VOLUME 11.5 fl (7.4-10.4); PLATELET COUNT 217 K/mm3 (130-400); RED BLOOD COUNT 2.93 M/mm3 (4.10-5.30); REDCELL DISTRIBUTION WIDTH-CV 19.9 % (11.5-14.5)
[2020-05-14 07:52] LABS: CALCIUM 8.3 mg/dL (8.4-10.2); CREATININE, serum 1.21 (0.52-1.25); POTASSIUM 4.1 mmol/L (3.4-5.0)
--- NOTE | 2020-05-14 08:31 | NUR ---
Pt awake and alert upon entry, sitting up in bed, no C/O pain at this time. Shift assessments complete, left Pt in bed lowest position, call light in reach.
[2020-05-14 11:15] VITALS: BP 117/72; PULSE 75; TEMP 98
[2020-05-14 16:22] VITALS: BP 123/78; PULSE 78; TEMP 100.4
[2020-05-14 19:32] VITALS: BP 102/64; PULSE 80; TEMP 97.5
--- NOTE | 2020-05-14 20:28 | NUR ---
Patient laying in bed and watching TV upon enter the room. Patient alert and oriented. Patient reports neropathy pain to her bilateral feet 10/24. Scheduled Lyrica given per MAY. Held Metoprolol for SBP <110. VS stable. No fever at this time. Ice-water provided per patient request. Call light within reach. Patient denies further needs at this time.
[2020-05-15] VITALS (12 sets, daily range): BP systolic 97–129; BP diastolic 67–80; PULSE 73–80; TEMP 97.4–98.6
[2020-05-15 06:21] LABS: MEAN CELL VOLUME 104 fl (80.0-100.0); MEAN CORPUSCULAR HGB CONC 32 g/dl (33.0-37.0); MEAN PLATELET VOLUME 11.6 fl (7.4-10.4); PLATELET COUNT 224 K/mm3 (130-400); RED BLOOD COUNT 2.66 M/mm3 (4.10-5.30); REDCELL DISTRIBUTION WIDTH-CV 19.5 % (11.5-14.5)
[2020-05-15 06:25] LABS: HEMATOCRIT 27.6 % (37.0-47.0); HEMOGLOBIN 8.7 g/dl (12.5-16.0); MEAN CORPUSCULAR HEMOGLOBIN 33 pg (27.0-31.0)
[2020-05-15 06:37] LABS: CALCIUM 8.6 mg/dL (8.4-10.2); CREATININE, serum 1.15 (0.52-1.25); POTASSIUM 4.1 mmol/L (3.4-5.0)
[2020-05-15 07:20] LABS: BAND 8 % (0-10); EOSINOPHIL 5 % (0-4); LYMPHOCYTE 32 % (20.0-51.0); NEUTROPHILS 49 % (42.0-75.2)
[2020-05-15 07:21] LABS: PLATELET ESTIMATE NORMAL (NORMAL)
[2020-05-15] MEDS ORDERED: DIFLUCAN 100MG100 MG PO (09:04)
[2020-05-15] MEDS ORDERED: TYLENOL 325MG325 MG PO (09:07)
[2020-05-15] MEDS ORDERED: ATIVAN 0.50.5 MG/TAB PO (09:08)
[2020-05-15] MEDS ORDERED: AMITRIPTYLINE H25 M1 PO (09:08)
[2020-05-15] MEDS ORDERED: OMNICEF 300MG300 MG PO (09:10)
--- NOTE | 2020-05-15 09:27 | NUR ---
PT C/O NAUSEA W/O VOMITING, ZOFRAN PO GIVEN PER PRN ORDER. PT DENIES CRACKERS AND SPRITE.
--- NOTE | 2020-05-15 09:59 | NUR ---
The patient is to discharge today, 05/15, to [facility]. No additional needs at this time.
--- NOTE | 2020-05-15 10:40 | NUR ---
VITALS TAKEN, IVIG STARTED ON PT, EDUCATED ON S/S TO LOOK OUT FOR LIKE SOB, PAIN IN LOWER BACK, FEELING FLUSHED OR ITCHY. PT DENIES SYMPTOMS AT THIS TIME. STAYED WITH PT FOR FIRST 10 MIN OF INFUSION. IN ROOM W/ PT. NO OTHER NEEDS
--- NOTE | 2020-05-15 10:43 | NUR ---
started pt's IVIG treatment. Pt BP was lower than in am, Jen DING notified and ordered a recheck in 30min to follow up.
--- NOTE | 2020-05-15 11:14 | NUR ---
COFFEE BROUGHT TO PT PER REQUEST, IVIG RATE CHANGED PER PROTOCOL, VITALS DOCUMENTED.
--- NOTE | 2020-05-15 11:14 | NUR ---
PT PLEASANT, OFFERS C/O NEUROPATHIC PAIN BILATERAL FEET, RATING AT 3/10 WHEN FEET ARE STILL, 8/10 WHEN MOVING. TAKING LYRICA WITH NOTABLE IMPROVEMENT. NO C/O OR NEEDS VOICED.
[2020-05-15 12:20] LABS: IMMUNOFIXATION (PEP) NO
--- NOTE | 2020-05-15 14:04 | NUR ---
ivig finished infusing, will call report to ipr.
--- NOTE | 2020-05-15 14:51 | NUR ---
REPORT CALLED, PT BELONGINGS GATHERED, PT TAKEN DOWN TO IPR VIA WHEELCHAIR. NO OTHER NEEDS
[2020-05-16 15:15] LABS: .COPPER,S <0.10 mcg/mL (())
[2020-05-18 11:31] LABS: VITAMIN B1 107 nmol/L (70-180)
[2020-11-17] MEDS ORDERED: NORCO 325 MG-51 TAB PO (11:44)
== END 2020-05-15 15:15 | DRG 872 ==
LOC: COL.ER 20:26 → MEDICAL 05-05 01:09
PROVIDERS: Emergency Medicine; Family Medicine; Hospitalist; Internal Medicine Nephrology; Nurse Practitioner Family; Physician Assistant; Psychiatry & Neurology Neurology; ADMIT Student in an Organized Health Care Education/Training Program
PROC: 02HV33Z Insertion of Infusion Device into Superior Vena Cava, Percutaneous Approach (ICD-10-PCS; principal; 2020-05-12)
DX: A41.9 Sepsis, unspecified organism (principal); G61.81 Chronic inflammatory demyelinating polyneuritis; N39.0 Urinary tract infection, site not specified; N17.9 Acute kidney failure, unspecified; E87.1 Hypo-osmolality and hyponatremia; I47.1 Supraventricular tachycardia; D84.9 Immunodeficiency, unspecified; G62.9 Polyneuropathy, unspecified; Z20.822 Contact with and (suspected) exposure to COVID-19; D53.9 Nutritional anemia, unspecified; D46.9 Myelodysplastic syndrome, unspecified; N18.2 Chronic kidney disease, stage 2 (mild); I12.9 Hypertensive chronic kidney disease with stage 1 through stage 4 chronic kidney disease, or unspecified chronic kidney disease; K21.9 Gastro-esophageal reflux disease without esophagitis; G43.909 Migraine, unspecified, not intractable, without status migrainosus; I73.00 Raynaud's syndrome without gangrene; K59.09 Other constipation; M81.0 Age-related osteoporosis without current pathological fracture; E03.9 Hypothyroidism, unspecified; Z88.6 Allergy status to analgesic agent; Z88.8 Allergy status to other drugs, medicaments and biological substances
CPT/HCPCS: 99222-AI; 99231-AI; 99232-AI; 99233-AI; 99239; C1751; J0696; J1447; J1569; J2405; J2543; J3370; J7030; J7050; P9040

== ENCOUNTER 2020-05-15 10:56 | Inpatient (IN) | payer MEDICARE, OTHER ==
[~2020-05-15] VITALS: Ht 170.2 cm; Wt 57.7 kg
[~2020-05-15 10:56] MED LIST changes: +AMITRIPTYLINE H25 M1 PO; +ATIVAN 0.50.5 MG/TAB PO; +ATIVAN 1MG T1 MG/TAB PO; +DIFLUCAN 100MG100 MG PO; +TYLENOL 325MG325 MG PO
[2020-05-15 16:43] VITALS: BP 109/66; PULSE 78; TEMP 98.9
[2020-05-15 18:00] VITALS: BP 109/66; PULSE 78; TEMP 98.8
--- NOTE | 2020-05-15 19:56 | NUR ---
PT TRANSPORTED VIA WC FROM MEDICAL UNIT TO ROOM 339 AROUND 1515. PT ORIENTED TO UNIT AND MED REC COMPLETED. PT DENIES PAIN AND WAS MADE COMFORTABLE.
[2020-05-16 03:47] VITALS: BP 112/60; PULSE 88; TEMP 98.6
--- NOTE | 2020-05-16 05:58 | NUR ---
PT RESTED THROUGH OUT NIGHT, UP TO VOID W NURSE ASST WALKER AND GAIT BELT. UNSTEADY GAIT. PAIN MANAGED W CURRENT SCHEDULED REGIMEN. NEEDS MET.
--- NOTE | 2020-05-16 10:52 | NUR ---
Patient and resting in recliner awaiting PT at this time. Patient was given prn zofran to help with nausea at this time. Patient was also given mirlax due to some constipation. Will continue to monitor.
--- NOTE | 2020-05-16 15:44 | NUR ---
Traffic Coordinator met with patient to complete intake as she is new to [facility]. Patient's , Byron (ph#[phone]) is at bedside. Patient lives in [place] with Byron and receives primary care/medications at [facility]. Patient states she has struggled the last couple of months and had to borrow a cane and walker from a couple families she attends congregational with. Patient does not have Advance Directives and was not interested in completing DPOA-HC at this time. Patient reports she is very happy to be in IPR and Byron agreed stating that patient is doing much better mentally now that she has moved over to IPR. SW will continue to follow.
[2020-05-16 17:49] VITALS: BP 115/65; PULSE 100; TEMP 99.2
--- NOTE | 2020-05-16 19:30 | NUR ---
RECEIVED CHANGE OF SHIFT REPORT FROM DAY SHIFT NURSE. BED ALARM ON.
--- NOTE | 2020-05-16 20:58 | NUR ---
Patient attended all therapies this shift. She is very unsteady with standing. She received AFO's to bilateral ankles due to the right ankle turning in on her when she stands and weakness with the left ankle. Patient's will be picking up some longer socks to wear under the AFO's and will drop off tomorrow. Patient currently resting in bed, call light in reach and bed alarm is set. Reported off to night nurse.
[2020-05-16 22:33] VITALS: BP 118/86
[2020-05-17 05:07] VITALS: BP 119/72; PULSE 80; TEMP 98.6
[2020-05-17 07:13] LABS: MEAN CELL VOLUME 103 fl (80.0-100.0); MEAN CORPUSCULAR HGB CONC 32 g/dl (33.0-37.0); PLATELET COUNT 210 K/mm3 (130-400); RED BLOOD COUNT 2.68 M/mm3 (4.10-5.30); REDCELL DISTRIBUTION WIDTH-CV 18.9 % (11.5-14.5)
[2020-05-17 07:17] LABS: HEMATOCRIT 27.7 % (37.0-47.0); HEMOGLOBIN 8.8 g/dl (12.5-16.0); MEAN CORPUSCULAR HEMOGLOBIN 33 pg (27.0-31.0)
--- NOTE | 2020-05-17 07:32 | NUR ---
CHANGE OF SHIFT REPORT GIVEN TO DAY SHIFT NURSECHELE.
[2020-05-17 07:40] LABS: CALCIUM 8.9 mg/dL (8.4-10.2); CREATININE, serum 1.11 (0.52-1.25); MAGNESIUM 1.7 mg/dL (1.6-2.3); POTASSIUM 4.3 mmol/L (3.4-5.0)
[2020-05-17 08:42] LABS: BAND 5 % (0-10); BASOPHIL 2 % (0-2); EOSINOPHIL 9 % (0-4); LYMPHOCYTE 35 % (20.0-51.0); NEUTROPHILS 35 % (42.0-75.2); PLATELET ESTIMATE NORMAL (NORMAL)
--- NOTE | 2020-05-17 09:21 | NUR ---
PT C/O DIFFICULTY USING PHONE BUT NO PAIN THIS AM.
--- NOTE | 2020-05-17 16:18 | NUR ---
Artificial Flowers Dyer met with patient to review and provide copy of team conference notes. Patient states today was a good day. Patient will be re-evaluated in a week.
[2020-05-17 18:05] VITALS: BP 108/64; PULSE 85; TEMP 98.3
--- NOTE | 2020-05-17 18:14 | NUR ---
PT REPORTED MILD PAIN TO TOP OF RT FOOT BUT DENIED OTHER PAIN TODAY. PRN CALEB GIVEN THIS AM AND SUPPOSITORY THIS ELSA WITH SMALL SF.
--- NOTE | 2020-05-17 19:20 | NUR ---
RECEIVED CHANGE OF SHIFT REPORT FROM DAY SHIFT NURSE.
--- NOTE | 2020-05-17 20:00 | NUR ---
GAIT UNSTEADY WHEN WALKING TO AND FROM BED TO BATHROOM WITHOUT HAVING B ASOs ON, REQUIRES MAX ASST FROM STAFF WITH GAIT BELT ON AND PATIENT USING WHEELED WALKER. WEAK WHEELCHAIR DRIVER THAT ARE EQUAL. DENIES CHEST PAIN/SOA AT THIS TIME. BED ALARM ON WHEN IN BED.
[2020-05-17 22:13] VITALS: BP 127/74
[2020-05-18 05:31] VITALS: BP 116/71; PULSE 78; TEMP 98.6
--- NOTE | 2020-05-18 14:02 | NUR ---
Admission QIM scores were reviewed by the team. Code of 3 chosen for oral hygiene was determined by team discussion to be the most usual performance before interventions for this patient during the assessment period. Code of 88 chosen for toileting transfers was determined by team discussion to be the most usual performance for this patient during the assessment period. Code of 3 for chair/bed to chair transfers was determined by team discussion to be the most usual performance for this patient during the assessment period.--Jennie López, PD
[2020-05-18 15:34] VITALS: BP 103/55; PULSE 73; TEMP 97.9
--- NOTE | 2020-05-18 20:44 | NUR ---
Patient attended all therapies today. Patient reported more pain to her right ankle and more swelling. See new order for ankle x-ray. Awaiting physician to read results. Patient elevated her right ankle, it was wrapped with an eveline wrap for more comfort and ice was applied. Patient was very tired this afternoon following therapy so did sleep alot. Patient received three wigs to try on of which are in her room. Patient's was here for supper and helped OBGYN HOSPITALIST PHYSICIAN with placing meal orders for tomorrow. Patient currently resting in bed, call light in reach and bed alarm set. Reported off to night nurse.
--- NOTE | 2020-05-18 21:00 | NUR ---
PT RESTING IN BED. HERE- GETTING READY TO GO. PT REPORTS NEUROPATHY TO BLE. HAVING RT FOOT/ANKLE PAIN- SEE MAR FOR MOTRIN GIVEN. ELEVATED ON PILLOWS AND ICE PACK APPLIED. SHIFT ASSESSMENT COMPLETED.
[2020-05-19 05:19] VITALS: BP 125/71; PULSE 68; TEMP 97.8
--- NOTE | 2020-05-19 15:18 | NUR ---
Electron Tube Assembler followed up with patient before the weekend. Patient's is at bedside. SW scheduled patient/family conference for 05/24/20 @ 0777.
[2020-05-19 16:10] VITALS: BP 96/61; PULSE 81; TEMP 97.6
--- NOTE | 2020-05-19 19:34 | NUR ---
PATIENT HAD UNEVENTFUL SHIFT. PATIENT CURRENTLY RESTING IN BEDSIDE CHAIR. PATIENTS RIGHT ANKLE WRAPPED WITH DENAE WRAP DURING THE DAY. PATIENT REPORTED MINIMAL PAIN AND REFUSED PAIN MEDICATIONS WHEN OFFERED. PATIENTS RLE ICED AND ELEVATED THROUGHOUT THE SHIFT. CALL LIGHT IN REACH. REPORT GIVEN TO CRISTINA AMEZQUITA.
--- NOTE | 2020-05-19 20:00 | NUR ---
PT SITTING IN RECLINER. C/O BUTTOCKS HURT. SL RED, SKIN INTACT. WILL GET CUSHION FOR CHAIR AND FOAM OVERLAY FOR BED. C/O JAMES. BP 92/60. HELD METOPROLOL. GAVE MOTRIN AND XANAX. RT FOOT ELEVATED AND ICE PACK APPLIED. SCD'S ON. PT TO BR WITH VERY UNSTEADY WOBBLY GAIT. PT ABLE TO REMOVE PANTS BUT REQUIRED ASSIST WITH PULLING THEM BACK UP. PT ABLE TO PERFORM OWN HYGEINE. TO BED. REQUIRED ASSIST LIFTING LEGS INTO BED. ORAL CARE- REQUIRED ASSIST WITH TOOTHPASTE ON BRUSH AND SET UP /EMPTYING BASIN. PT VERY WEAK. CALL LIGHT IN REACH. BED ALARM SET. CALL LIGHT IN REACH.
[2020-05-20 05:36] VITALS: BP 118/74; PULSE 82; TEMP 98
--- NOTE | 2020-05-20 08:08 | NUR ---
PT RESTING IN BED AT BEDSIDE SHIFT REPORT. STATES THE MOTRIN HELPED HER HEADACHE AND OTHER THAN MILD PAIN IN HER FOOT SHE IS NOT HURTING. RT FOOT IS MILDLY SWOLLEN. DISCCUSSED LACK OF APPETITE WITH PT. PT'S APPETITE IS DECREASED WELL HER SENSE OF TASTE HAS BEEN IMPACTED BY CHEMO MEDICATIONS. ENCOURAGED PT TO EAT FAVORITE FOODS OR ANY FOODS THAT TASTE GOOD AND KEEP TRYING
[2020-05-20 16:11] VITALS: BP 112/70; PULSE 87; TEMP 98.2
--- NOTE | 2020-05-20 17:56 | NUR ---
PT REPORTED MILD PAIN TO RT FOOT BUT NO PRN MEDICATION GIVEN. PT REPORTED FALLING TO FLOOR WHEN TRYING TO REACH FOR ROOM PHONE WHICH WAS NOT IN REACH. PT NEEDED ASSISTANCE TO GET BACK INTO RECLINER. STATED HER TAIL BONE WAS SORE BUT DID NOT HIT ANYTHING HARD. VITAL SIGNS WNL, DR. HANSON NOTIFIED, AND CHARGE NURSE, EVENT REPORT DOCUMENTED.
--- NOTE | 2020-05-20 20:00 | NUR ---
PT SITTING IN RECLINER DOZING. NO DISTRESS AT THIS TIME. CALL LIGHT IN REACH. CHAIR ALARM ON
--- NOTE | 2020-05-20 21:15 | NUR ---
PT ASISSTED TO BED BY LENS FABRICATING MACHINE TENDER. PT REPORTS RT KNEE HURTS. SL SWOLLEN. NO OTHER INJURY NOTED. HAS H/A AND NECK ACHE- SEE MAR FOR IBUPROFEN. PT CHILLING. AFEBRILE. WARM BLANKET APPLIED. FEELS BETTER. DECILNES ICE PACK TO KNEE. REVIEWED LAB WITH PT. WILL CALL FOR NEXT LAB ORDER. CALL LIGHT IN REACH. BED ALARM SET.
[2020-05-21 05:05] VITALS: BP 126/75; PULSE 68; TEMP 97.7
--- NOTE | 2020-05-21 05:11 | NUR ---
ASSISTED PT TO BR W/ WALKER. VERY UNSTEAADY AND UNCOORDINATED. MUFFLE OPERATOR VERY WEAK. C/O RT KNEE DISCLOMFORT FROM LAST NIGHT WHEN LEG FELL OF EDGE RECLINER LEG REST. NO REDNESS OR SWELLING THIS AM. DECLINED MOTRIN. CALL LIGHT IN REACH. BED ALARM SET.
[2020-05-21 06:38] LABS: BASO % 1.4 % (0.0-2.0); EOS # 0.2 (0.0-0.7); EOS % 7.9 % (0-4.0); GRAN % 47.9 % (42.2-75.2); LYMPH # 0.6 (1.2-3.4); LYMPH % 26.5 % (20.0-51.0); MEAN CELL VOLUME 104 fl (80.0-100.0); MEAN CORPUSCULAR HGB CONC 32 g/dl (33.0-37.0); MONO # 0.4 (0.1-0.6); MONO % 16.3 % (1.7-9.3); PLATELET COUNT 172 K/mm3 (130-400); RED BLOOD COUNT 2.66 M/mm3 (4.10-5.30); REDCELL DISTRIBUTION WIDTH-CV 18.5 % (11.5-14.5)
[2020-05-21 06:42] LABS: ALBUMIN 3.2 gm/dL (3.5-5.0); BILIRUBIN,TOTAL 0.3 mg/dL (0.0-1.0); CALCIUM 8.8 mg/dL (8.4-10.2); CREATININE, serum 1.02 (0.52-1.25); TOTAL PROTEIN 7.3 gm/dL (6.4-8.2)
[2020-05-21 06:51] LABS: HEMATOCRIT 27.6 % (37.0-47.0); HEMOGLOBIN 8.7 g/dl (12.5-16.0); MEAN CORPUSCULAR HEMOGLOBIN 33 pg (27.0-31.0)
--- NOTE | 2020-05-21 11:28 | NUR ---
PT SLEEPING IN BED AT BEDSIDE SHIFT REPORT. C/O MILD DISCOMFORT TO RT KNEE FROM FALLING ASLEEPING IN A BAD POSITION IN THE RECLINER THE PREVIOUS DAY. KNEE DOES NOT APPEAR MORE SWOLLEN THEN LEFT. PT WAS ASSISTED TO RECLINER THIS AM, REFUSED BATHROOM.
[2020-05-21 16:20] VITALS: BP 128/73; PULSE 78; TEMP 99.1
--- NOTE | 2020-05-21 17:36 | NUR ---
PT C/O PAIN IN RT KNEE AND TOP OF RT FOOT AND RECEIEVED PRN MOTRIN THIS EVENING. COMPRESSION DENAE WRAP APPLIED TO RT KNEE FOR PAIN, PT REFUSED ICE. PT WALKED WITH FWW 200+ FEET WITH BREAK IN MIDDLE.
--- NOTE | 2020-05-21 21:15 | NUR ---
PT SLEEPING. WOKE UP EASLITY TO TAKE HS MEDS. RT KNEE PAIN- MOTRIN GIVEN. CALL LIGHT IN REACH. BED ALARM SET.
[2020-05-22 05:56] VITALS: BP 119/71; PULSE 68; TEMP 97.9
--- NOTE | 2020-05-22 09:27 | NUR ---
Patient resting in bed, call light in reach and bed alarm set. Patient denies pain in right knee at this time. Patient tolerated diet well this morning. She was hard to wake up this morning, but did finally wake up to eat. Will continue to monitor.
--- NOTE | 2020-05-22 10:28 | NUR ---
Initial visit; Patient thanked Screw Cutter for looking in on her, listening and offering spiritual care. Screw Cutter will keep Shelley in her prayers and will continuet to look in on her.
[2020-05-22 16:08] VITALS: BP 114/71; PULSE 72; TEMP 98.2
--- NOTE | 2020-05-22 16:52 | NUR ---
Blacking Wheel Tender met with patient to follow up from the weekend. Patient requested to reschedule family meeting as her has an appointment Friday. SW rescheduled meeting to at 1300 and provided change in time/date to DIANNA Schneider Director.
--- NOTE | 2020-05-22 19:59 | NUR ---
RECEIVED CHANGE OF SHIFT REPORT FROM DAY SHIFT NURSE. BED ALARM ON, PATIENT SLEEPING, SPOUSE AT BEDSIDE.
--- NOTE | 2020-05-22 20:00 | NUR ---
DENIES CHEST PAIN/SOA/NAUSEA AT THIS TIME. DENIES NUMBNESS/TINGLING TO EXTREMITIES AT THIS TIME. BED ALARM ON WHILE IN BED.
--- NOTE | 2020-05-22 20:41 | NUR ---
Patient has red area to buttocks, but is blanchable. Will continue to monitor.
--- NOTE | 2020-05-22 20:42 | NUR ---
Patient attended all therapies today. Patient received approval to be able to bring her Boniva from home in, but pharmacy does not carry this. This was communicated to the night nurse. Tolerated diet well. Her stopped by to see her this afternoon and ate supper with her. She had one eppisode of nausea this afternoon following therapies, but denied any need for meds. Patient currently resting in bed, call light in reach and bed alarm is set. Reported off to night nurse.
[2020-05-23 06:09] VITALS: BP 113/72; PULSE 71; TEMP 97.6
--- NOTE | 2020-05-23 07:28 | NUR ---
CHANGE OF SHIFT REPORT GIVEN TO DAY SHIFT NURSE, CHELE EVANS.
--- NOTE | 2020-05-23 09:58 | NUR ---
PT RESTING IN BED AT BEDSIDES SHIFT REPORT. PT C/O PAIN IN RIGHT KNEE THAT RADIATES TO UPPER CALF. KNEE APPEARS POSSIBLY SLIGHTLY SWOLLEN. DENAE COMPRESSION APPLIED AND MOTRIN PRN GIVEN.
[2020-05-23 16:24] VITALS: PULSE 63; TEMP 98.1
[2020-05-23 16:37] VITALS: BP 118/64
--- NOTE | 2020-05-23 19:19 | NUR ---
RECEIVED CHANGE OF SHIFT REPORT FROM DAY SHIFT NURSE.
--- NOTE | 2020-05-23 19:31 | NUR ---
JERED OIL AGENT EQUAL BUT WEAK. DENIES CHEST PAIN/SOA/NAUSEA. DENIES COMPLAINTS OF PAIN OR ANY NEEDS. BED ALARM ON WHEN IN BED.
--- NOTE | 2020-05-24 02:26 | NUR ---
PATIENT SLEEPING, DOES NOT WAKE WHEN DOOR TO ROOM IS OPENED BY STAFF. OBSERVED BREATHING SHALLOW BUT EVEN AND NONLABORED. BED ALARM ON.
[2020-05-24 04:29] VITALS: BP 117/66; PULSE 68; TEMP 97.7
--- NOTE | 2020-05-24 07:22 | NUR ---
CHANGE OF SHIFT REPORT GIVEN TO DAY SHIFT NURSE, ESTUARDO EVANS. UP IN CHAIR WITH CHAIR ALARM ON.
[2020-05-24 16:56] VITALS: BP 115/69; PULSE 77; TEMP 97.8
--- NOTE | 2020-05-24 17:14 | NUR ---
Magnetic Prospecting Operator met with patient to review and provide team conference notes. Tentative discharge date is set for 06/02/20 and recommendation is for outpatient therapy. SW also advised that grab bars and a 3 in 1 commode are recommended. SW will continue to follow.
--- NOTE | 2020-05-24 18:58 | NUR ---
Patient did well today. She sat up in the chair most the day. No complaints of pain or nausea. She had some mild pain this morning to her feet but did not want the motrin since it was around the time for her lyrica. She continues to need constant assistance with walking. Her right leg robin drops out when she ambulates. She showered with OT this afternoon. She did not eat much today. No other changes at this time. Call light within reach.
--- NOTE | 2020-05-24 20:30 | NUR ---
PT RESTING IN BED. AT BEDSIDE. VERY SUPPORTIVE. PT TALKATIVE AND IN GOOD SPIRITS. PT RELATES RT KNEE STILL PAINFUL AT TIMES AND GIVES OUT WHEN AMBULATING. SEE MAR FOR IBUPROFEN GIVEN. DENIES NEEDS. CALL LIGHT IN REACH. BED ALARM SET.
--- NOTE | 2020-05-25 | NUR ---
PT SLEEPING. NO DISTRESS.
[2020-05-25 05:36] VITALS: BP 103/66; PULSE 74; TEMP 97.7
--- NOTE | 2020-05-25 10:40 | NUR ---
Follow-up visit; Shelley and had a nice long visit about her work, her life and her health issues. prays that Shelley continue to feel better and her health continue to improve. Shelley thanked for visit and prayers.
[2020-05-25 13:11] LABS: BASO % 0.7 % (0.0-2.0); EOS # 0.1 (0.0-0.7); EOS % 1.7 % (0-4.0); GRAN # 3.8 (1.4-6.5); GRAN % 83.3 % (42.2-75.2); LYMPH # 0.4 (1.2-3.4); LYMPH % 9.1 % (20.0-51.0); MEAN CELL VOLUME 105 fl (80.0-100.0); MEAN CORPUSCULAR HGB CONC 31 g/dl (33.0-37.0); MEAN PLATELET VOLUME 12.1 fl (7.4-10.4); MONO # 0.2 (0.1-0.6); MONO % 4.8 % (1.7-9.3); PLATELET COUNT 167 K/mm3 (130-400); RED BLOOD COUNT 2.86 M/mm3 (4.10-5.30)
[2020-05-25 13:17] LABS: HEMATOCRIT 30.1 % (37.0-47.0); HEMOGLOBIN 9.3 g/dl (12.5-16.0); MEAN CORPUSCULAR HEMOGLOBIN 33 pg (27.0-31.0)
[2020-05-25 13:19] LABS: ALANINE AMINOTRANSFERASE 37 U/L (4-34); ALBUMIN 3.6 gm/dL (3.5-5.0); ALKALINE PHOSPHATASE 97 U/L (50-136); ANION GAP 9 mmol/L (7-16); AST,SGOT 48 U/L (15-37); BILIRUBIN,TOTAL 0.3 mg/dL (0.0-1.0); BLOOD UREA NITROGEN 27 mg/dL (7-17); CALCIUM 8.8 mg/dL (8.4-10.2); CARBON DIOXIDE 20 mmol/L (22-30); CHLORIDE 109 mmol/L (98-107); CREATININE, serum 1.12 (0.52-1.25); GLUCOSE 189 mg/dL (74-106); LIPASE 334 U/L (23-300); POTASSIUM 4.1 mmol/L (3.4-5.0); SODIUM 138 mmol/L (137-145); TOTAL PROTEIN 7.7 gm/dL (6.4-8.2)
--- NOTE | 2020-05-25 13:20 | NUR ---
Laboratory Apparatus Glass Grinder participated in family meeting which included patient's , Byron who is at bedside. PT/OT reviewed patient's progress and recommendations. OT is recommending bars for over the toilet, grab bars in the shower, and a tub transfer bench. Patient's Byron is also interested in purchasing a gait belt for patient. SW provided list of local DME providers. Tentative discharge date is set for 06/02/20 and recommendation is for outpatient PT/OT.
[2020-05-25 13:31] LABS: TROPONIN-I < 0.012 ng/mL (0.000-0.035)
[2020-05-25 16:27] VITALS: BP 130/71; PULSE 66; TEMP 97.7
[2020-05-25 16:29] VITALS: BP 115/76; PULSE 72
[2020-05-25 16:30] VITALS: BP 97/66; PULSE 100
--- NOTE | 2020-05-25 20:53 | NUR ---
Patient attended all therapies today. She reported some indigestion and upper abdomen tightness this afternoon. See new orders for labs and EKG. Patient had an episode of low BP this afternoon when working with therapy. See new order for Orthostatic BPs Daily. Patient's stopped by this evening to visit patient and ate supper with her. Patient currently resting in bed, call light in reach and bed alarm set. Reported off to night nurse.
--- NOTE | 2020-05-25 21:00 | NUR ---
PT RESTING IN BED. PT RELATES SHE IS VERY TIRED. STILL HAVING GENERALIZED WEAKNESS. RT HAND 1ST AND 2ND FINGER UNABLE TO EXTEND AND LIFT 3RD AND 4TH FINGERS DOES. FRUSTRATED AND WORRIED THAT SHE MIGHT NOT GET BETTER OR WHAT IF DX IS SOMETHING DIFFERENT. PT RELIES ON MERCED AND TO COPE. PT VERY UNSTEADY AND UNCOORDINATED GAIT. RT KNEE STILL GIVES OUT ON OCCATION. IBUPROFEN GIVEN FOR RT LE DISCOMFORT. PT INFORMED UA NEEDED. KEYBOARD ACTION ASSEMBLER AWARE. CALL LIGHT IN REACH. BED ALARM SET.
[2020-05-26 05:36] VITALS: BP 105/62; PULSE 74; TEMP 98.1
--- NOTE | 2020-05-26 06:00 | NUR ---
HOT DIP PLATING SUPERVISOR OBTAINED UA AND SENT TO LAB.
--- NOTE | 2020-05-26 08:59 | NUR ---
PT C/O TIGHTNESS HORIZONTALLY ACROSS UPPER ABD UNDER BREASTS. REPORTS IT WORSENS WHEN EATING AND WAS NAUSEOUS THIS AM, RECEIVED PRN ZOFRAN. REPORTS DIARRHEA YESTERDAY. [facility] WAS NOTIFIED YESTERDAY AND TESTS RAN, NO ISSUES FOUND.
[2020-05-26 09:07] LABS: COLLECTION METHOD CATHETER
[2020-05-26 09:24] LABS: MUCOUS Present /lpf; PH 5 (5-8); URINE APPEARANCE Cloudy; URINE BACTERIA Many /hpf; URINE BILIRUBIN Negative (NEGATIVE); URINE BLOOD 1+ (NEGATIVE); URINE COLOR Yellow; URINE GLUCOSE Negative (NEGATIVE); URINE KETONE Negative (NEGATIVE); URINE LEUKOCYTE ESTERASE 2+ (NEGATIVE); URINE NITRATE Positive (NEGATIVE); URINE PROTEIN(semi-quant) 1+ (NEGATIVE); URINE UROBILINOGEN Negative (NEGATIVE)
[2020-05-26 16:26] VITALS: BP 120/71; PULSE 75; TEMP 98
[2020-05-27 06:06] VITALS: BP 110/72; PULSE 73; TEMP 97.8
--- NOTE | 2020-05-27 08:17 | NUR ---
PT UP IN CHAIR VISITING WITH SPOUSE DURING THE EVENING HOURS. REQUEST AND GIVEN MOTRIN 400MG FOR LEG PAIN. REPEATED MOTRIN 400MG THIS AM. VERY UNSTEADY GAIT. PICC IN PLACE IN UPPER RIGHT ARM. GOOD NIGHT. CALL LIGHT IN REACH. BED ALARM ON.
--- NOTE | 2020-05-27 09:00 | NUR ---
Patient resting in bed, call light in reach and bed alarm set. Will continue to monitor.
[2020-05-27 15:08] VITALS: BP 106/67; PULSE 78; TEMP 98
--- NOTE | 2020-05-27 17:38 | NUR ---
Patient attended Group Therapy this morning. Her has been by her side most of the day eating lunch and supper with her. Patient is tolerating antibiotic for UTI well at this time, with no rashes observed. Patient did report that she has had a history of gastric ulcers. See updated orders to decrease Motrin for patient, but patient and her think it might be better to not take the motrin due to her stomach pains. She has had four surgeries in the past from bleeding ulcers and is afraid that this may happen again. She will be trying to use the tylenol instead. This will be communicated to the night nurse.
--- NOTE | 2020-05-28 05:24 | NUR ---
RESTING QUIETLY. TYLENOL FOR PAIN. ASSIST OF 1 FOR TRANSFERS/AMBULATION.
[2020-05-28 06:02] VITALS: BP 109/65; PULSE 78; TEMP 97.8
--- NOTE | 2020-05-28 08:19 | NUR ---
Patient takes pills whole with water. Patient tolerated diet well this morning. Currently resting in bed, call light in reach and bed alarm is set. Will continue to monitor.
[2020-05-28 09:57] VITALS: BP 109/88; PULSE 82; TEMP 98.2
--- NOTE | 2020-05-28 10:09 | NUR ---
Patient reports pain from back of throat to the point where the esophagus goes to the stomach. She reports that it hurts when she drinks even water. Patient vomited 5 ml of clear fluid. She was given prn zofran and maalox. Will continue to monitor.
--- NOTE | 2020-05-28 12:03 | NUR ---
Patient was given prn maalox per Dr. Gray's orders. Patient reports some relief. Will continue to monitor.
[2020-05-28 14:49] VITALS: BP 113/69; PULSE 75; TEMP 98.4
--- NOTE | 2020-05-28 15:41 | NUR ---
Patient refused the flu vaccine at this time. She will get one upon discharge at a place that carries the 65 & older version of that vaccine. We do not carry that at this hospital.
--- NOTE | 2020-05-28 16:54 | NUR ---
Patient is currently not complaining of indigestion at this time. She is resting in bed, call light in reach and by her side. Will continue to monitor.
--- NOTE | 2020-05-28 19:20 | NUR ---
RECEIVED CHANGE OF SHIFT REPORT FROM DAY SHIFT NURSE.
--- NOTE | 2020-05-28 20:50 | NUR ---
DENIES CHEST PAIN/SOA, REPORTS HAS SOME HEARTBURN STILL THAT IS BETTER THAN THIS MORNING, NEEDS NEED FOR PRN MEDS AT THIS TIME. BED ALARM ON WHEN IN BED.
[2020-05-29 05:38] VITALS: BP 123/74; PULSE 82; TEMP 98.4
[2020-05-29 06:02] LABS: BASO % 1.9 % (0.0-2.0); EOS # 0.1 (0.0-0.7); EOS % 5.7 % (0-4.0); GRAN # 1.1 (1.4-6.5); GRAN % 50.7 % (42.2-75.2); LYMPH # 0.6 (1.2-3.4); LYMPH % 27.5 % (20.0-51.0); MEAN CELL VOLUME 102 fl (80.0-100.0); MEAN CORPUSCULAR HGB CONC 32 g/dl (33.0-37.0); MEAN PLATELET VOLUME 11.9 fl (7.4-10.4); MONO # 0.3 (0.1-0.6); MONO % 13.7 % (1.7-9.3); PLATELET COUNT 138 K/mm3 (130-400); RED BLOOD COUNT 2.61 M/mm3 (4.10-5.30); REDCELL DISTRIBUTION WIDTH-CV 17.4 % (11.5-14.5)
[2020-05-29 06:11] LABS: HEMATOCRIT 26.7 % (37.0-47.0); HEMOGLOBIN 8.5 g/dl (12.5-16.0); MEAN CORPUSCULAR HEMOGLOBIN 33 pg (27.0-31.0)
[2020-05-29 06:16] LABS: BILIRUBIN,TOTAL 0.2 mg/dL (0.0-1.0); CALCIUM 8.3 mg/dL (8.4-10.2); CREATININE, serum 0.78 (0.52-1.25); MAGNESIUM 1.6 mg/dL (1.6-2.3); POTASSIUM 4.1 mmol/L (3.4-5.0); TOTAL PROTEIN 6.5 gm/dL (6.4-8.2)
--- NOTE | 2020-05-29 07:03 | NUR ---
CHANGE OF SHIFT REPORT GIVEN TO DAY SHIFT NURSE, CHELE EVANS.
--- NOTE | 2020-05-29 07:05 | NUR ---
PT RESTING IN BED AT BEDSIDE SHIFT REPORT, BED ALARM ON. RECEIVED PRN APAP FOR HEADACHE PRIOR TO THIS SHIFT.
--- NOTE | 2020-05-29 11:24 | NUR ---
SW met with the patient to introduce oneself and to follow up after the weekend. The patient states that she is doing good. MARIE reviewed the d/c plan for this Friday with outpatient PT/OT. The patient states that she is a little nervous about being back home. She states that she used to get outpatient therapy at [place], but was made aware that OT Yoan would be at [facility] on [address]. The patient states that she needs to talk to her first to see if they want to do the outpatient therapy at [facility] or [facility] [place]. SW to continue to follow.
[2020-05-29 15:23] VITALS: BP 116/73; PULSE 81; TEMP 98.5
--- NOTE | 2020-05-29 19:09 | NUR ---
PT GIVEN SUPPOSITORY THIS EVENING WITH LITTLE EFFECT. HARD SMALL STOOL. FEELS LIKE THERE IS MORE. PT COMPLAINED OF NAUSEA THIS AM AND RECEIVED PRN ZOFRAN. IS SCHEDULED FOR AN EGD TOMORROW AND WILL BE NPO AFTER MIDNIGHT.
--- NOTE | 2020-05-29 19:14 | NUR ---
RECEIVED CHANGE OF SHIFT REPORT FROM DAY SHIFT NURSE.
--- NOTE | 2020-05-29 20:00 | NUR ---
DENIES CHEST PAIN/SOA/NAUSEA AT THIS TIME. BED ALARM WHEN IN BED. AMBULATION SLIGHTLY UNSTEADY, WEARS ASO BRACE TO BLE WHEN AMBULATING.
[2020-05-30 04:44] VITALS: BP 120/71; PULSE 71; TEMP 98
--- NOTE | 2020-05-30 06:58 | NUR ---
LEFT MESSAGE WITH ENDO SCHEDULING FOR EGD SCHEDULING TIME FOR 4230-[address] MENDEZ. INFORMED DAY SHIFT NURSE OF MESSAGE LEFT WITH ENDO SCHEDULING.
--- NOTE | 2020-05-30 07:02 | NUR ---
PT REMAINS NPO THIS AM FOR EGD PROCEDURE SCHEDULED FOR 1100 THIS MORNING. ASSISTED TO BATHROOM EARLY AND STARTING THERAPY EARLY AT 715.
--- NOTE | 2020-05-30 07:05 | NUR ---
CHANGE OF SHIFT REPORT GIVEN TO DAY SHIFT NURSE, CHELE EVANS.
--- NOTE | 2020-05-30 10:56 | NUR ---
Follow-up visit; Patient thanked for looking in on her. and Shelley can talk openly and enjoy visiting. will continue to keep Shelley in her prayers.
[2020-05-30 12:40] VITALS: BP 125/70; PULSE 67; TEMP 97.6
[2020-05-30 12:55] VITALS: BP 138/73; PULSE 71
[2020-05-30 13:10] VITALS: BP 130/76; PULSE 69
[2020-05-30 15:23] VITALS: BP 115/68; PULSE 79; TEMP 97.7
[2020-05-30 16:25] VITALS: BP 122/77; PULSE 80; TEMP 98.2
--- NOTE | 2020-05-30 17:43 | NUR ---
PT TOLERATED EGD PROCEDURE WELL. CAME BACK TO FLOOR ALERT AND ORIENTED AND TRANSFERRED WITH ASSISTANCE BACK TO BED. PT HAS REPORTED SOME UPSET STOMACH THIS EVENING WITH LIQUIDY SMALL STOOL. CHECKED FOR IMPACTION, NONE FELT. WILL CONTINUE TO MONITOR.
--- NOTE | 2020-05-30 19:30 | NUR ---
RECEIVED CHANGE OF SHIFT REPORT FROM DAY SHIFT NURSE.
--- NOTE | 2020-05-30 19:30 | NUR ---
JERED HAND MALE INFERTILITY SPECIALIST WEAK BUT EQUAL, OBSERVED GAIT UNSTEADY, GAIT AWKWARD AND SLOW, PATIENT WEARING AFO BRACES TO BLE WHICH HELPS WITH GAIT/SAFETY. PICC LINE IN PLACE WITH IVF POST EGD INFUSING WITH NO PROBLEMS. BED ALARM ON WHEN IN BED. SPOUSE BEDSIDE. DENIES CHEST PAIN/SOA AT THIS TIME. REPORTS SLIGHT NAUSEA, DENIES NEEDS FOR PRN MEDS AT THIS TIME.
[2020-05-31 05:15] VITALS: BP 119/73; PULSE 79; TEMP 97.5
--- NOTE | 2020-05-31 07:18 | NUR ---
CHANGE OF SHIFT REPORT GIVEN TO DAY SHIFT NURSE, ROBB EVANS.
--- NOTE | 2020-05-31 07:45 | NUR ---
Patient resting in bed, call light in reach and bed alarm set. Patient denies any questions at this time.
--- NOTE | 2020-05-31 14:50 | NUR ---
Patient currently resting in wheelchair, call light in reach and alarm set. Patient's is at her side watching TV together. Patient tolerating diet well this shift.
--- NOTE | 2020-05-31 15:18 | NUR ---
MARIE met with the patient and her , Byron, to present and review the IPR Team Conference Note. The patient's anticipated d/c date is still on for Friday, 06/02, with outpatient PT/OT. The patient and her are agreeable to the plan. The patient and her would like to pursue with outpatient therapy at [facility] on [address]. MARIE attempted to contact [facility] to schedule appointments. MARIE left them a voicemail.
--- NOTE | 2020-05-31 16:14 | NUR ---
MARIE contacted [facility] again and secured the patient an outpatient PT appointment on 06/07 at 0900 and OT on 06/09 at 1300. MARIE will need to fax the patient's d/c orders to them at [phone]. MARIE notified the patient's RN of the appointments.
[2020-05-31 17:08] VITALS: BP 106/63; PULSE 78; TEMP 98
--- NOTE | 2020-05-31 18:57 | NUR ---
RECEIVED CHANGE OF SHIFT REPORT FROM DAY SHIFT NURSE.
--- NOTE | 2020-05-31 20:00 | NUR ---
JERED HAND INVENTORY PLANNER WEAK BUT EQUAL. AMBULATING STEADY WHEN NOT FATIGUED OR DROWSY. DENIES CHEST PAIN/SOA/NAUSEA AT THIS TIME. BED ALARM ON WHEN IN BED. CHAIR ALARM ON WHEN UP IN CHAIR.
[2020-06-01 05:37] VITALS: BP 118/68; PULSE 77; TEMP 98
--- NOTE | 2020-06-01 07:12 | NUR ---
CHANGE OF SHIFT REPORT GIVEN TO DAY SHIFT NURSE, ROBB EVANS.
[2020-06-01 08:57] VITALS: BP 78/51; PULSE 97
[2020-06-01 09:02] VITALS: BP 75/45; PULSE 89
[2020-06-01 09:11] VITALS: BP 95/59; PULSE 81; TEMP 97.4
--- NOTE | 2020-06-01 09:18 | NUR ---
Follow-up with encouragement as patient was doing Physical Therapy.
--- NOTE | 2020-06-01 09:20 | NUR ---
Therapy stood up and walked across green [place] with walker and once reached the car, felt very faint and bent over walker and requested to sit down. Pulled up wheelchair and sat down and vitals were checked. See Vital signs from 8:57 and 9:02 AM. Did try standing again at 9:05 AM, but she felt faint again and decided to go back to room. Patient currently resting in bed and VSS at this time with legs elevated and patient supine. Will continue to monitor.
[2020-06-01 09:45] VITALS: BP 100/65; PULSE 74
--- NOTE | 2020-06-01 10:07 | NUR ---
Patient currently working with OT at this time. VSS at this time. Will continue to monitor.
[2020-06-01 18:05] VITALS: BP 119/72; PULSE 72; TEMP 97.9
--- NOTE | 2020-06-01 20:26 | NUR ---
Patient didn't have any further episodes of syncope this afternoon. TOÑA Hardy assessed patient see new orders to hold the metoprolol due to low BP's. Follow up appointments were made for patient. Awaiting a return call Dr. Rushing's office regarding IVIG order clarification as well as where patient will be able to get her IVIG infusions on a monthly basis. Reported off to night nurse.
--- NOTE | 2020-06-01 21:00 | NUR ---
PT RESTING IN BED. PT FEELES LIKE HAND AND FINGERS ARE MUCH WEAKER. SPILLED WATER EARLIER. HAVING DIFFICULTY TEXTING ON CELL PHONE. GETING VERY UPSET AND FRUSTRATED. BILAT WEAK NEEDLE LOOM SETTER. COBAN PLACED AROUND CUP TO GIVE BETTER NEEDLE LOOM SETTER. DENIES NEED FOR PAIN MED TONIGHT. CALL LIGHT IN REACH. BED ALARM SET.
--- NOTE | 2020-06-02 04:20 | NUR ---
PT SLEEPING WELL TONIGHT. NO DISTRESS.
[2020-06-02 04:44] VITALS: BP 115/68; PULSE 76; TEMP 98
--- NOTE | 2020-06-02 09:05 | NUR ---
PT RESTING IN BED AT REPORT. PT DENIES PAIN THIS AM, WILL DISCUSS KEEPING PICC IN PLACE UPON DISCHARGE.
[2020-06-02] MEDS ORDERED: ZOFRAN 4MG T4 MG/TAB PO (09:12)
[2020-06-02] MEDS ORDERED: PROTONIX 40MG T40 MG PO (09:13)
[2020-06-02] MEDS ORDERED: VITAMIN B-6100 MG PO ×2 (09:13→14:40)
[2020-06-02] MEDS ORDERED: TOPROL XL 25MG25 MG PO (09:15)
--- NOTE | 2020-06-02 09:43 | NUR ---
The patient is to discharge back home with her today, 06/02, with outpatient PT/OT at [facility]. MARIE faxed the patient's d/c orders to [facility]. MARIE presented and read the IM form outloud to the patient. The patient verbalized understanding and gave MARIE approval to sign the form on her behalf. MARIE provided her with a copy. No additional needs at this time.
--- NOTE | 2020-06-02 10:34 | NUR ---
Follow-up visit; Patient feeling nauseous this morning. Ground Crew Lines Person left card and wished Shelley God speed as she is being discharged today.
[2020-06-02] MEDS ORDERED: AMITRIPTYLINE H25 M1 PO (14:40)
--- NOTE | 2020-06-02 15:15 | NUR ---
Discharge QIM scores were reviewed by the team. Code of 6 chosen for oral hygiene was determined by team discussion to be the most usual performance before interventions for this patient during the assessment period. Code of 4 chosen for toilet hygiene was determined by team discussion to be the most usual performance for this patient during the assessment period. Code of 4 chosen for toileting transfers was determined by team discussion to be the most usual performance for this patient during the assessment period. Code of 6 chosen for putting on/taking off footwear was determined by team discussion to be the most usual performance for this patient during the assessment period. Code of 3 chosen for sit to lying was determined by team discussion to be the most usual performance for this patient during the assessment period. Code of 3 chosen for lying to sitting on side of bed was determined by team discussion to be the most usual performance for this patient during the assessment period.--Jennie López,
--- NOTE | 2020-06-02 16:08 | NUR ---
PT HEALTH SUMMARY, DISCHARGE SUMMARY, AND HOME MEDS PRINTED AND REVIEWED WITH PT AND , JW. STRESSED IMPORTANCE OF FU APPTS. REVIEWED MEDS, ESCRIPTS SENT TO FOR [facility] OF AMITRIPTLYINE AND VITAMIN D-3. BELONGINGS GATHERED BY SPOUSE INCLUDING MEDS FROM PHARMACY AND CELLPOHE. PT TRANSPORTED VIA WC BY NURSE AND SEATBELTED FOR RIDE HOME. PT AND SPOUSE DENIED QUESTIONS. NUMBER PROVIDED IF ANY ARISE.
[2020-11-17] MEDS ORDERED: NORCO 325 MG-51 TAB PO (11:44)
== END 2020-06-02 15:50 | disposition home or self-care (01) | DRG 74 ==
PROVIDERS: Internal Medicine Gastroenterology; Physician Assistant; Student in an Organized Health Care Education/Training Program; ADMIT Internal Medicine
PROC: 0DB38ZX Excision of Lower Esophagus, Via Natural or Artificial Opening Endoscopic, Diagnostic (ICD-10-PCS; principal; 2020-05-30 11:00)
DX: G61.81 Chronic inflammatory demyelinating polyneuritis (principal); N39.0 Urinary tract infection, site not specified; N17.9 Acute kidney failure, unspecified; E87.1 Hypo-osmolality and hyponatremia; E44.0 Moderate protein-calorie malnutrition; K21.9 Gastro-esophageal reflux disease without esophagitis; I73.00 Raynaud's syndrome without gangrene; E03.9 Hypothyroidism, unspecified; D46.9 Myelodysplastic syndrome, unspecified; G62.9 Polyneuropathy, unspecified; R13.10 Dysphagia, unspecified; K21.00 Gastro-esophageal reflux disease with esophagitis, without bleeding; I10 Essential (primary) hypertension; G43.909 Migraine, unspecified, not intractable, without status migrainosus; K59.09 Other constipation; D53.9 Nutritional anemia, unspecified; M81.0 Age-related osteoporosis without current pathological fracture; Z88.6 Allergy status to analgesic agent; Z88.8 Allergy status to other drugs, medicaments and biological substances; Z90.710 Acquired absence of both cervix and uterus
CPT/HCPCS: 99222-AI; 99231-AI; 99232-AI; 99233-AI; 99239; J0696; J2704; J7030

== ENCOUNTER 2020-06-07 09:01 | Outpatient (RCR) | payer MEDICARE, OTHER ==
[~2020-06-07 09:01] MED LIST changes: +PROTONIX 40MG T40 MG PO; +VITAMIN B-6100 MG PO
[2020-06-23] MEDS ORDERED: COPPER GLUCONATE PO (11:27)
[2020-07-10] MEDS ORDERED: GAMMAGARD10 GM IV (10:05)
[2020-08-18] MEDS ORDERED: PREDNISONE10 MG PO (09:54)
[2020-08-25] MEDS ORDERED: GLYSET PO (11:37)
[2020-11-17] MEDS ORDERED: NORCO 325 MG-51 TAB PO (11:44)
== END 2020-09-05 | disposition home or self-care (01) ==
LOC: MKS.ESL.PT
DX: G61.81 Chronic inflammatory demyelinating polyneuritis (principal); A41.9 Sepsis, unspecified organism; N39.0 Urinary tract infection, site not specified

== ENCOUNTER 2020-06-09 10:40 | Outpatient (CLI) | payer MEDICARE, OTHER ==
[~2020-06-09] VITALS: Ht 170.2 cm; Wt 58.4 kg
[2020-06-09] VITALS (12 sets, daily range): BP systolic 109–132; BP diastolic 68–79; PULSE 63–76; TEMP 98.2
[2020-06-09 11:28] LABS: MEAN CELL VOLUME 103 fl (80.0-100.0); MEAN CORPUSCULAR HGB CONC 31 g/dl (33.0-37.0); PLATELET COUNT 163 K/mm3 (130-400); RED BLOOD COUNT 2.71 M/mm3 (4.10-5.30); REDCELL DISTRIBUTION WIDTH-CV 17.2 % (11.5-14.5)
[2020-06-09 11:29] LABS: HEMATOCRIT 27.8 % (37.0-47.0); HEMOGLOBIN 8.7 g/dl (12.5-16.0); MEAN CORPUSCULAR HEMOGLOBIN 32 pg (27.0-31.0)
[2020-06-09 11:41] LABS: CREATININE, serum 0.9 (0.52-1.25); MAGNESIUM 1.7 mg/dL (1.6-2.3); POTASSIUM 3.8 mmol/L (3.4-5.0)
[2020-11-17] MEDS ORDERED: NORCO 325 MG-51 TAB PO (11:44)
== END 2020-06-09 15:20 | disposition home or self-care (01) ==
LOC: EUO 10:40
PROVIDERS: Internal Medicine
DX: G61.81 Chronic inflammatory demyelinating polyneuritis (principal); Z79.899 Other long term (current) drug therapy
CPT/HCPCS: J1459; J1569

== ENCOUNTER 2020-06-30 21:40 | Inpatient (IN) | payer MEDICARE, OTHER ==
[~2020-06-30] VITALS: Ht 170.2 cm; Wt 58.5 kg
[~2020-06-30 21:40] MED LIST changes: +COPPER GLUCONATE PO
[2020-06-30 22:12] LABS: BASO # 0.1 (0.0-0.2); BASO % 2.3 % (0.0-2.0); EOS # 0.3 (0.0-0.7); EOS % 9.7 % (0-4.0); GRAN # 1.1 (1.4-6.5); GRAN % 43.6 % (42.2-75.2); HEMATOCRIT 30.1 % (37.0-47.0); HEMOGLOBIN 9.5 g/dl (12.5-16.0); LYMPH # 0.6 (1.2-3.4); LYMPH % 22.4 % (20.0-51.0); MEAN CELL VOLUME 105 fl (80.0-100.0); MEAN CORPUSCULAR HEMOGLOBIN 33 pg (27.0-31.0); MEAN CORPUSCULAR HGB CONC 32 g/dl (33.0-37.0); MEAN PLATELET VOLUME 12.7 fl (7.4-10.4); MONO # 0.6 (0.1-0.6); MONO % 21.2 % (1.7-9.3); PLATELET COUNT 166 K/mm3 (130-400); RED BLOOD COUNT 2.88 M/mm3 (4.10-5.30); REDCELL DISTRIBUTION WIDTH-CV 17.2 % (11.5-14.5)
[2020-06-30 22:19] LABS: PROTHROMBIN TIME 10.9 SECONDS (9.7-12.8)
[2020-06-30 22:23] LABS: ALANINE AMINOTRANSFERASE 25 U/L (4-34); ALBUMIN 3.4 gm/dL (3.5-5.0); ALKALINE PHOSPHATASE 88 U/L (50-136); ANION GAP 6 mmol/L (7-16); AST,SGOT 38 U/L (15-37); BILIRUBIN,TOTAL < 0.1 mg/dL (0.0-1.0); BLOOD UREA NITROGEN 23 mg/dL (7-17); CALCIUM 8.7 mg/dL (8.4-10.2); CARBON DIOXIDE 29 mmol/L (22-30); CHLORIDE 101 mmol/L (98-107); CREATININE, serum 0.78 (0.52-1.25); LIPASE 191 U/L (23-300); POTASSIUM 3.3 mmol/L (3.4-5.0); SODIUM 137 mmol/L (137-145); TOTAL PROTEIN 6.9 gm/dL (6.4-8.2)
[2020-06-30 22:24] LABS: C-REACTIVE PROTEIN < 0.5 mg/dL (0.0-0.9); GLUCOSE 595 mg/dL (74-106)
[2020-06-30 22:34] LABS: TROPONIN-I < 0.012 ng/mL (0.000-0.035)
[2020-06-30 22:47] LABS: COLLECTION METHOD CLEAN CATCH
[2020-06-30 22:54] LABS: BUDDING YEAST Present /hpf; MUCOUS Present /lpf; PH 5 (5-8); URINE APPEARANCE Clear; URINE BACTERIA None Seen /hpf; URINE BILIRUBIN Negative (NEGATIVE); URINE BLOOD Negative (NEGATIVE); URINE COLOR Yellow; URINE GLUCOSE 2+ (NEGATIVE); URINE KETONE Negative (NEGATIVE); URINE LEUKOCYTE ESTERASE Trace (NEGATIVE); URINE NITRATE Negative (NEGATIVE); URINE PROTEIN(semi-quant) Negative (NEGATIVE); URINE RBC 0-2 /hpf; URINE UROBILINOGEN Negative (NEGATIVE)
[2020-07-01] VITALS (545 sets, daily range): BP systolic 106–126; BP diastolic 59–77; PULSE 65–104; TEMP 97.5–98; O2SAT 83–100
--- NOTE | 2020-07-01 00:50 | NUR ---
Pt arrived to ICU room 5 via cart with RADHA Padilla RN. Pt transferred from the cart to the ICU bed with the assistance of 3. Pt oriented to room and call light system. Call light within reach.
[2020-07-01 06:36] LABS: BASO % 1.5 % (0.0-2.0); EOS # 0.2 (0.0-0.7); EOS % 6.2 % (0-4.0); GRAN # 1.4 (1.4-6.5); GRAN % 52.3 % (42.2-75.2); LYMPH # 0.7 (1.2-3.4); LYMPH % 25.1 % (20.0-51.0); MEAN CELL VOLUME 103 fl (80.0-100.0); MEAN CORPUSCULAR HGB CONC 32 g/dl (33.0-37.0); MEAN PLATELET VOLUME 12.8 fl (7.4-10.4); MONO # 0.4 (0.1-0.6); MONO % 14.5 % (1.7-9.3); PLATELET COUNT 154 K/mm3 (130-400); RED BLOOD COUNT 2.72 M/mm3 (4.10-5.30); REDCELL DISTRIBUTION WIDTH-CV 17.1 % (11.5-14.5)
[2020-07-01 06:45] LABS: CALCIUM 8.3 mg/dL (8.4-10.2); CREATININE, serum 0.72 (0.52-1.25); POTASSIUM 4.6 mmol/L (3.4-5.0)
[2020-07-01 06:50] LABS: HEMATOCRIT 27.9 % (37.0-47.0); HEMOGLOBIN 8.9 g/dl (12.5-16.0); MEAN CORPUSCULAR HEMOGLOBIN 33 pg (27.0-31.0)
--- NOTE | 2020-07-01 07:48 | NUR ---
Bedside shift report given to CRISTINA Flood.
--- NOTE | 2020-07-01 07:58 | NUR ---
Report received from CRISTINA Schulte. Patient resting in bed with no complaints. D5NS infusing at 150 ml/hr. VS WNL. BG 87
--- NOTE | 2020-07-01 12:00 | NUR ---
DR. CRUZ HERE TO SEE PATIENT FOR CONSULT
--- NOTE | 2020-07-01 15:31 | NUR ---
SW met with patient in ICU room 5 Patient reports that she resides locally with her spouse Robinson h, or c. Patient reports that her pcp is Dr. Penaloza and is currently working witht he following specialist for her care, Dr. Serra, Dr. Dominique, Dr. Freya Bejarano, Dr. Rushing, Dr. Christiansen. Dr. Dodd in [facility]. Patient reports that she was recieving services with [facility] Home health and is okay with a referral back to [facility]. Patient reports that she was just setup to recieved copper infusions starting Friday and her spouse is needing to cancel those if she will be in the hospital. Patient reports that she uses a walker and wheelchair for mobility. Patient reports that she does not need any oxygen and not supports for her heart. Patient reports having cancer. Patient shares that she uses [facility] for her medications on . Patient indicated that she is not sure everything she will need at this time. Preliminary assessment. Will continue to follow changes in needs and document a finalized plan. MARIE educated patient on care supports. ZAHIRA.
--- NOTE | 2020-07-01 17:18 | NUR ---
pt settled into new room, assessment performed, pt denied sob, helped pt order dinner, pt pleasant, x1 assist stand pivot, pt legs very shaky, iv fluids infusing, medications verified, no other needs at this time.
--- NOTE | 2020-07-01 17:32 | NUR ---
pt pleasant, aox4, reported hallucination of bugs on bed in am but none since then. pt denies pain during shift, uneventful shift overall, pt had shower, no other needs at this time.
--- NOTE | 2020-07-01 18:00 | NUR ---
pt breathing unlabored, hr regular, breaths sounds cta, picc liza, lw int, skin tear present in rfa, no edema noted, pt voiding, bs present. no other needs.
--- NOTE | 2020-07-01 19:32 | NUR ---
Awake, alert, oriented x 4, able to make needs known, sitting up in chair, fall precautions in place, blood sugar checks continue q 2 hours, telemetry in use, VS stable, will continue to monitor.
[2020-07-02 04:06] VITALS: BP 107/65; PULSE 85; TEMP 97.9
--- NOTE | 2020-07-02 06:24 | NUR ---
Resting quietly, no s/s of hypo/hyper glycemia, accu checks q 2 hours continues, VS stable, telemetry in use running NSR, updated on plan of care.
[2020-07-02 07:59] VITALS: BP 130/75; PULSE 73; TEMP 97.9
--- NOTE | 2020-07-02 10:28 | NUR ---
Pt. is sitting up in bed with by bedside. a/o x4, currently pleasant and comfortable. Pt. states she has been feeling constipated and has not had a bowel movement since 06/30/20 and would like to see if she can receive anything to alleviate constipation. Colace has been ordered and adminstered. Nurse will reevaluate constipation. Pt. did state that the Climara patch did break her out and thats why she refused the medication.Nurse also informed pt. and of no additional alternatives in stock for the Climara patch and that it is okay if her were to bring the patch she uses from home. Pt. expresses no additional needs at this time. Call light within reach.
[2020-07-02 11:49] VITALS: BP 118/65; PULSE 80; TEMP 98
[2020-07-02 15:44] VITALS: BP 125/76; PULSE 79; TEMP 98.1
--- NOTE | 2020-07-02 17:55 | NUR ---
Pt. sitting in bed, a/o x4, with at bed side. Pt. was assisted with bath and is currently eating supper. Nurse reminded pt.'s to bring Estraidol patch from home if she desires for staff to administer it as opposed to the Climara brand we carry. Pt. currently expresses no further needs at this time. Call quoc sanchez.
--- NOTE | 2020-07-02 18:03 | NUR ---
PT PLEASANT, D5 DC'D, SUGARS Q4H AND STABLE, PT HAD SHOWER DURING SHIFT, EATING SMALL AMOUNTS OF EACH MEAL, PT DENIES PAIN AT THIS TIME, CALL LIGHT WITHIN REACH, AT BEDSIDE, NO OTHER NEEDS.
[2020-07-02 19:11] VITALS: BP 126/77; PULSE 82; TEMP 98.2
--- NOTE | 2020-07-02 19:16 | NUR ---
Awake, alert, oriented x 4, able to verbalize all needs, R upper arm picc with dressing c/d/i, telemetry in use, no s/s of hypo/hyper glycmeia, BSL checks q 4 hours as ordered, VS stable, requires x1-2 max assist with pivot transfer, tolerating diet and on Room air, updated on plan of care. verbalized understanding.
[2020-07-02 23:51] VITALS: BP 125/72; PULSE 88; TEMP 98.1
[2020-07-03 03:50] VITALS: BP 119/68; PULSE 91; TEMP 98.3
--- NOTE | 2020-07-03 06:00 | NUR ---
Resting quietly, no c/o at this time, respirations even & unlabored, skin warm and dry, call hutson w/i reach
[2020-07-03 07:37] VITALS: BP 128/76; PULSE 83; TEMP 98
--- NOTE | 2020-07-03 07:40 | NUR ---
PT PLEASANT, AOX4, PT DOES NOT HAVE EQUAL TANK CLEANER, WEAKER IN R HAND, PT REPORTS HEADACHE 6/10, PT MEDICATIONS GIVEN AND TYLENOL GIVEN FOR HEADACHE, PT REFUSED ZINC. PT MRI SCHEDULED FOR 2PM, CAN EAT BREAKFAST BUT NOT LUNCH FOR MRI , REPORTING WORSENING EYE SIGHT "WHEN ALL OF THIS STARTED". CALL LIGHT WITHIN REACH, NO OTHER NEEDS
[2020-07-03 07:51] LABS: EOS # 0.2 (0.0-0.7); EOS % 5.6 % (0-4.0); GRAN # 2.7 (1.4-6.5); LYMPH # 0.7 (1.2-3.4); LYMPH % 16.9 % (20.0-51.0); MEAN CELL VOLUME 103 fl (80.0-100.0); MEAN CORPUSCULAR HGB CONC 32 g/dl (33.0-37.0); MEAN PLATELET VOLUME 12.8 fl (7.4-10.4); MONO # 0.5 (0.1-0.6); MONO % 12.3 % (1.7-9.3); PLATELET COUNT 150 K/mm3 (130-400); REDCELL DISTRIBUTION WIDTH-CV 16.6 % (11.5-14.5)
[2020-07-03 07:53] LABS: HEMATOCRIT 28.8 % (37.0-47.0); HEMOGLOBIN 9.1 g/dl (12.5-16.0); MEAN CORPUSCULAR HEMOGLOBIN 33 pg (27.0-31.0)
[2020-07-03 08:03] LABS: CALCIUM 8.6 mg/dL (8.4-10.2); CREATININE, serum 0.71 (0.52-1.25)
--- NOTE | 2020-07-03 09:25 | NUR ---
PT EATING BREAKFAST THAT HER IS BRINGING, NOT FOOD FROM HERE.
--- NOTE | 2020-07-03 10:39 | NUR ---
MARIE attended clinical rounds. The patient is to have an MRI today and may be able to d/c later today. MARIE notified and faxed updates to Dora at [facility]. Dora confirms that the patient has services through them. SW to continue to follow.
--- NOTE | 2020-07-03 10:58 | NUR ---
PT RETURNED FROM MRI
[2020-07-03 12:04] VITALS: BP 116/71; PULSE 73; TEMP 98
--- NOTE | 2020-07-03 13:41 | NUR ---
The patient is to discharge back home with her today, 07/03, with home health services for longterm/PT/OT from [facility]. MARIE notified and faxed d/c orders to Dora at [facility]. MARIE met with the patient and presented and read the IM form outloud to her. The patient verbalized understanding and gave SW approval to sign the form on her behalf. MARIE provided her with a copy. No additional needs at this time.
--- NOTE | 2020-07-03 13:54 | NUR ---
discharge education provided, verbal understanding of discharge education witnessed by Willam MuñozGeosciences Associate Professor. pt currently getting car for discharge. pt will discharge with PICC line in place. no other needs.
--- NOTE | 2020-07-03 14:07 | NUR ---
PT REFUSING LYRICA HERE, STATES SHE'LL TAKE IT AT HOME. PT ESCORTED OUT VIA WHEELCHAIR. NO OTHER NEEDS
[2020-07-04 05:40] LABS: C-PEPTIDE,SERUM 3.89 ng/mL (0.80-3.90)
[2020-07-04 14:03] LABS: PROINSULIN XXX
[2020-11-17] MEDS ORDERED: NORCO 325 MG-51 TAB PO (11:44)
== END 2020-07-03 14:15 | disposition home health service (06) | DRG 640 ==
LOC: COL.ER 21:40 → ICU 23:28 → MEDICAL 07-01 16:59
PROVIDERS: Emergency Medicine; Student in an Organized Health Care Education/Training Program; ADMIT Family Medicine
DX: E16.2 Hypoglycemia, unspecified (principal); G93.41 Metabolic encephalopathy; G61.81 Chronic inflammatory demyelinating polyneuritis; D84.9 Immunodeficiency, unspecified; I47.1 Supraventricular tachycardia; E87.6 Hypokalemia; I95.9 Hypotension, unspecified; E61.0 Copper deficiency; D46.9 Myelodysplastic syndrome, unspecified; D53.9 Nutritional anemia, unspecified; K21.00 Gastro-esophageal reflux disease with esophagitis, without bleeding; I73.00 Raynaud's syndrome without gangrene; K59.00 Constipation, unspecified; E03.9 Hypothyroidism, unspecified; M81.0 Age-related osteoporosis without current pathological fracture; Z90.3 Acquired absence of stomach [part of]; Z88.6 Allergy status to analgesic agent; Z88.8 Allergy status to other drugs, medicaments and biological substances; Z90.710 Acquired absence of both cervix and uterus; Z90.49 Acquired absence of other specified parts of digestive tract
CPT/HCPCS: 99223-AI; 99233-AI; 99239; A9585; J0696; J2405; J7030; J7042

== ENCOUNTER 2020-07-07 11:00 | Outpatient (RCR) | payer MEDICARE, OTHER ==
[2020-06-16 11:14] VITALS: BP 84/59; PULSE 79; TEMP 98.1
[2020-06-23 11:16] VITALS: BP 92/56; PULSE 81; TEMP 98.1
[2020-06-30 11:03] VITALS: BP 104/64; PULSE 64; TEMP 97.2
[~2020-07-07] VITALS: Ht 170.2 cm; Wt 59.0 kg
[2020-07-07 11:55] VITALS: BP 108/65; PULSE 63; TEMP 97.4
[2020-11-17] MEDS ORDERED: NORCO 325 MG-51 TAB PO (11:44)
== END 2020-07-07 11:57 | disposition still patient (30) ==
LOC: EUO 11:00
DX: Z45.2 Encounter for adjustment and management of vascular access device (principal); D46.A Refractory cytopenia with multilineage dysplasia

== ENCOUNTER 2020-07-10 09:03 | Outpatient (CLI) | payer MEDICARE, OTHER ==
[2020-07-07 11:57] LABS: MEAN CELL VOLUME 103 fl (80.0-100.0); MEAN CORPUSCULAR HGB CONC 31 g/dl (33.0-37.0); MEAN PLATELET VOLUME 12.5 fl (7.4-10.4); PLATELET COUNT 210 K/mm3 (130-400); RED BLOOD COUNT 3.03 M/mm3 (4.10-5.30); REDCELL DISTRIBUTION WIDTH-CV 16.1 % (11.5-14.5)
[2020-07-07 12:06] LABS: ALBUMIN 3.5 gm/dL (3.5-5.0); BILIRUBIN,TOTAL 0.2 mg/dL (0.0-1.0); CALCIUM 9.1 mg/dL (8.4-10.2); CREATININE, serum 0.83 (0.52-1.25); HEMATOCRIT 31.1 % (37.0-47.0); HEMOGLOBIN 9.6 g/dl (12.5-16.0); MEAN CORPUSCULAR HEMOGLOBIN 32 pg (27.0-31.0); POTASSIUM 4.5 mmol/L (3.4-5.0); TOTAL PROTEIN 7.2 gm/dL (6.4-8.2)
[2020-07-07 12:29] LABS: BAND 5 % (0-10); EOSINOPHIL 4 % (0-4); METAMYELOCYTE 1 % (0-0); NEUTROPHILS 63 % (42.0-75.2); PLATELET ESTIMATE NORMAL (NORMAL)
[2020-07-07 12:33] LABS: LYMPHOCYTE 17 % (20.0-51.0)
[2020-07-10] VITALS (10 sets, daily range): BP systolic 83–108; BP diastolic 57–77; PULSE 63–74; TEMP 96.8–97.7
[~2020-07-10] VITALS: Ht 170.2 cm; Wt 55.5 kg
[2020-07-10] MEDS ORDERED: GAMMAGARD10 GM IV (10:05)
[2020-11-17] MEDS ORDERED: NORCO 325 MG-51 TAB PO (11:44)
== END 2020-07-10 14:48 | disposition home or self-care (01) ==
LOC: EUO 09:03
PROVIDERS: Internal Medicine Medical Oncology
DX: G61.81 Chronic inflammatory demyelinating polyneuritis (principal)
CPT/HCPCS: J1569

== ENCOUNTER 2020-08-11 09:05 | Outpatient (CLI) | payer MEDICARE, OTHER ==
[~2020-08-11] VITALS: Ht 170.2 cm; Wt 55.6 kg
[2020-08-11] VITALS (11 sets, daily range): BP systolic 101–125; BP diastolic 61–93; PULSE 52–68; TEMP 97.4
[~2020-08-11 09:05] MED LIST changes: +GAMMAGARD10 GM IV
[2020-11-17] MEDS ORDERED: NORCO 325 MG-51 TAB PO (11:44)
== END 2020-08-16 08:30 | disposition home or self-care (01) ==
LOC: EUO 09:05
DX: G61.81 Chronic inflammatory demyelinating polyneuritis (principal); Z79.899 Other long term (current) drug therapy
CPT/HCPCS: J1569

== ENCOUNTER 2020-09-08 11:03 | Outpatient (CLI) | payer MEDICARE, OTHER ==
[~2020-09-08] VITALS: Ht 170.2 cm; Wt 54.8 kg
[2020-09-08] VITALS (16 sets, daily range): BP systolic 90–113; BP diastolic 49–77; PULSE 58–75; TEMP 97.9
[~2020-09-08 11:03] MED LIST changes: +GLYSET PO; +PREDNISONE10 MG PO
[2020-11-17] MEDS ORDERED: NORCO 325 MG-51 TAB PO (11:44)
== END 2020-09-08 16:36 | disposition home or self-care (01) ==
LOC: EUO 11:03
DX: G61.81 Chronic inflammatory demyelinating polyneuritis (principal); Z79.899 Other long term (current) drug therapy
CPT/HCPCS: J1569

== ENCOUNTER 2020-09-29 11:00 | Outpatient (RCR) | payer MEDICARE, OTHER ==
[2020-07-13 11:45] VITALS: BP 91/59; PULSE 88; TEMP 98.2
[2020-07-21 11:25] VITALS: BP 124/76; PULSE 69; TEMP 98
[2020-07-28 12:03] VITALS: BP 101/67; PULSE 68; TEMP 97.7
[2020-08-04 11:27] VITALS: BP 101/61; PULSE 72; TEMP 98.1
[2020-08-04 11:39] LABS: HEMOGLOBIN 11.3 g/dl (12.5-16.0); MEAN CELL VOLUME 95 fl (80.0-100.0); MEAN CORPUSCULAR HEMOGLOBIN 31 pg (27.0-31.0); MEAN CORPUSCULAR HGB CONC 33 g/dl (33.0-37.0); MEAN PLATELET VOLUME 12.5 fl (7.4-10.4); PLATELET COUNT 210 K/mm3 (130-400); RED BLOOD COUNT 3.64 M/mm3 (4.10-5.30); REDCELL DISTRIBUTION WIDTH-CV 14.2 % (11.5-14.5)
[2020-08-04 11:40] LABS: HEMATOCRIT 34.6 % (37.0-47.0)
[2020-08-04 11:49] LABS: ALBUMIN 3.8 gm/dL (3.5-5.0); BILIRUBIN,TOTAL 0.2 mg/dL (0.0-1.0); CALCIUM 9.3 mg/dL (8.4-10.2); CREATININE, serum 0.74 (0.52-1.25); POTASSIUM 4.4 mmol/L (3.4-5.0); TOTAL PROTEIN 7.8 gm/dL (6.4-8.2)
[2020-08-04 12:18] LABS: BAND 3 % (0-10); BASOPHIL 2 % (0-2); EOSINOPHIL 7 % (0-4); LYMPHOCYTE 19 % (20.0-51.0); NEUTROPHILS 61 % (42.0-75.2)
[2020-08-04 12:19] LABS: PLATELET ESTIMATE NORMAL (NORMAL)
[2020-08-11 09:44] LABS: HEMOGLOBIN 11.4 g/dl (12.5-16.0); MEAN CELL VOLUME 94 fl (80.0-100.0); MEAN CORPUSCULAR HEMOGLOBIN 31 pg (27.0-31.0); MEAN CORPUSCULAR HGB CONC 33 g/dl (33.0-37.0); MEAN PLATELET VOLUME 12.3 fl (7.4-10.4); PLATELET COUNT 301 K/mm3 (130-400); RED BLOOD COUNT 3.73 M/mm3 (4.10-5.30); REDCELL DISTRIBUTION WIDTH-CV 14.6 % (11.5-14.5)
[2020-08-11 09:51] LABS: HEMATOCRIT 35.1 % (37.0-47.0)
[2020-08-11 09:53] LABS: ALBUMIN 3.7 gm/dL (3.5-5.0); BILIRUBIN,TOTAL 0.2 mg/dL (0.0-1.0); CALCIUM 9.1 mg/dL (8.4-10.2); CREATININE, serum 0.76 (0.52-1.25); POTASSIUM 3.9 mmol/L (3.4-5.0); TOTAL PROTEIN 7.6 gm/dL (6.4-8.2)
[2020-08-11 10:04] LABS: BAND 3 % (0-10); EOSINOPHIL 7 % (0-4); LYMPHOCYTE 21 % (20.0-51.0); NEUTROPHILS 66 % (42.0-75.2); PLATELET ESTIMATE NORMAL (NORMAL)
[2020-08-18 09:28] VITALS: BP 102/67; PULSE 59; TEMP 98.1
[2020-08-25 16:56] VITALS: BP 94/56; PULSE 66; TEMP 98.1
[2020-09-01 11:37] LABS: HEMATOCRIT 37.2 % (37.0-47.0); HEMOGLOBIN 12.2 g/dl (12.5-16.0); MEAN CELL VOLUME 92 fl (80.0-100.0); MEAN CORPUSCULAR HEMOGLOBIN 30 pg (27.0-31.0); MEAN CORPUSCULAR HGB CONC 33 g/dl (33.0-37.0); MEAN PLATELET VOLUME 13.3 fl (7.4-10.4); PLATELET COUNT 157 K/mm3 (130-400); RED BLOOD COUNT 4.03 M/mm3 (4.10-5.30); REDCELL DISTRIBUTION WIDTH-CV 15.9 % (11.5-14.5)
[2020-09-01 11:39] LABS: ALBUMIN 3.5 gm/dL (3.5-5.0); BILIRUBIN,TOTAL 0.5 mg/dL (0.0-1.0); CREATININE, serum 0.75 (0.52-1.25); POTASSIUM 4.5 mmol/L (3.4-5.0); TOTAL PROTEIN 7.2 gm/dL (6.4-8.2)
[2020-09-01 12:19] LABS: ANISOCYTOSIS 1+; HYPOCHROMIA 2+; LYMPHOCYTE 5 % (20.0-51.0); NEUTROPHILS 92 % (42.0-75.2); PLATELET ESTIMATE NORMAL (NORMAL)
[2020-09-01 12:25] VITALS: BP 100/65; PULSE 66; TEMP 98.2
[2020-09-15 11:14] VITALS: BP 104/71; PULSE 66; TEMP 97.9
[2020-09-22 11:23] VITALS: BP 91/59; PULSE 68; TEMP 97.8
[~2020-09-29] VITALS: Ht 170.2 cm; Wt 58.0 kg
[2020-09-29 11:21] VITALS: BP 102/69; PULSE 72; TEMP 98.2
[2020-10-06 11:52] VITALS: BP 104/68; PULSE 110; TEMP 98.1
[2020-11-17] MEDS ORDERED: NORCO 325 MG-51 TAB PO (11:44)
== END 2020-10-11 | disposition home or self-care (01) ==
LOC: EUO
PROVIDERS: Internal Medicine Medical Oncology
DX: Z45.2 Encounter for adjustment and management of vascular access device (principal); D46.A Refractory cytopenia with multilineage dysplasia; D72.819 Decreased white blood cell count, unspecified; D70.8 Other neutropenia

== ENCOUNTER 2020-10-06 10:55 | Outpatient (CLI) | payer MEDICARE, OTHER ==
[~2020-10-06] VITALS: Ht 170.2 cm; Wt 58.0 kg
[2020-10-06] VITALS (11 sets, daily range): BP systolic 102–123; BP diastolic 68–86; PULSE 62–110; TEMP 98–98.1
[2020-11-17] MEDS ORDERED: NORCO 325 MG-51 TAB PO (11:44)
== END 2020-10-06 16:00 | disposition home or self-care (01) ==
LOC: EUO 10:55
DX: G61.81 Chronic inflammatory demyelinating polyneuritis (principal)
CPT/HCPCS: J1569

== ENCOUNTER 2020-11-03 10:51 | Outpatient (CLI) | payer MEDICARE, OTHER ==
[2020-11-03] VITALS (10 sets, daily range): BP systolic 101–126; BP diastolic 70–87; PULSE 65–80; TEMP 97.8–98.3
[~2020-11-03] VITALS: Ht 170.2 cm; Wt 59.1 kg
[2020-11-03] MEDS ORDERED: PRILOSEC 20MG20 MG PO (11:57)
--- NOTE | 2020-11-03 16:00 | NUR ---
pt tolerated IGG infusion well, she has remained alert and oriented, pwd with reg and unlabored respirations throughout. Pt did c/o some pain to left foot at site of wound on bottom of foot. site was nontender to palp, and there was not acute redness or swelling at site. pain improved with elevation of left leg on a pillow, keeping heel off the bed. Otherwise pt was without complaint. She was able to transfer to w/c and then to car with minimal assist. Vital signs remained unchanged for duration of infusion, and pt was afebrile at time of departure. some vitals were lost on monitor and not recorded after 1445, however they were stable and unchanged throughout infusion.
[2020-11-17] MEDS ORDERED: NORCO 325 MG-51 TAB PO (11:44)
== END 2020-11-03 17:29 | disposition home or self-care (01) ==
LOC: EUO 10:51
DX: G61.81 Chronic inflammatory demyelinating polyneuritis (principal)
CPT/HCPCS: J1569

== ENCOUNTER 2020-11-15 13:56 | Emergency (ER) | payer MEDICARE, OTHER ==
[~2020-11-15] VITALS: Ht 170.2 cm; Wt 60.9 kg
[2020-11-15] MEDS ORDERED: PERCOCET 325 MG1 TA2 PO (18:23)
[2020-11-15 18:52] VITALS: BP 127/88; PULSE 73; TEMP 98.5
[2020-11-17] MEDS ORDERED: NORCO 325 MG-51 TAB PO (11:44)
== END 2020-11-15 18:52 | disposition home or self-care (01) ==
LOC: COL.ER 13:56
DX: S32.10XA Unspecified fracture of sacrum, initial encounter for closed fracture (principal); K21.9 Gastro-esophageal reflux disease without esophagitis; G62.9 Polyneuropathy, unspecified; E03.9 Hypothyroidism, unspecified; F17.200 Nicotine dependence, unspecified, uncomplicated; Z79.890 Hormone replacement therapy; Z79.899 Other long term (current) drug therapy; W19.XXXA Unspecified fall, initial encounter; W22.8XXA Striking against or struck by other objects, initial encounter

== ENCOUNTER 2020-12-01 11:06 | Outpatient (CLI) | payer MEDICARE, OTHER ==
[2020-12-01] VITALS (12 sets, daily range): BP systolic 103–126; BP diastolic 76–89; PULSE 62–69; TEMP 98.5
[~2020-12-01] VITALS: Ht 170.2 cm; Wt 51.5 kg
[~2020-12-01 11:06] MED LIST changes: +PERCOCET 325 MG1 TA2 PO
--- NOTE | 2020-12-01 11:19 | NUR ---
Initial visit; Patient and Academic Advising Director enjoyed a nice visit and Academic Advising Director offered God's blessings.
== END 2020-12-01 18:59 | disposition home or self-care (01) ==
LOC: EUO 11:06
DX: G61.81 Chronic inflammatory demyelinating polyneuritis (principal)
CPT/HCPCS: J1569

== ENCOUNTER 2020-12-29 10:57 | Outpatient (CLI) | payer MEDICARE, OTHER ==
[~2020-12-29] VITALS: Ht 170.2 cm; Wt 58.3 kg
[2020-12-29] VITALS (13 sets, daily range): BP systolic 104–133; BP diastolic 36–93; PULSE 59–69; TEMP 98.1–98.2
[2020-12-29 12:13] LABS: HEMATOCRIT 39.3 % (37.0-47.0); HEMOGLOBIN 12.5 g/dl (12.5-16.0); MEAN CELL VOLUME 90 fl (80.0-100.0); MEAN CORPUSCULAR HEMOGLOBIN 29 pg (27.0-31.0); MEAN CORPUSCULAR HGB CONC 32 g/dl (33.0-37.0); MEAN PLATELET VOLUME 12.8 fl (7.4-10.4); PLATELET COUNT 180 K/mm3 (130-400); RED BLOOD COUNT 4.35 M/mm3 (4.10-5.30); REDCELL DISTRIBUTION WIDTH-CV 14.3 % (11.5-14.5)
[2020-12-29 12:34] LABS: BAND 1 % (0-10); EOSINOPHIL 2 % (0-4); LYMPHOCYTE 6 % (20.0-51.0); NEUTROPHILS 86 % (42.0-75.2); PLATELET ESTIMATE NORMAL (NORMAL)
[2021-01-02 17:30] LABS: .COPPER,S 1.11 mcg/mL (())
== END 2020-12-29 17:51 | disposition home or self-care (01) ==
LOC: EUO 10:57
PROVIDERS: Internal Medicine Medical Oncology
DX: G61.81 Chronic inflammatory demyelinating polyneuritis (principal); Z79.899 Other long term (current) drug therapy
CPT/HCPCS: J1569

== ENCOUNTER 2021-01-05 11:00 | Outpatient (RCR) | payer MEDICARE, OTHER ==
[2020-10-13 11:37] VITALS: BP 103/70; PULSE 69; TEMP 97.9
[2020-10-20 11:25] VITALS: BP 92/59; PULSE 79; TEMP 97.6
[2020-10-27 11:14] VITALS: BP 83/46; PULSE 63; TEMP 97.4
[2020-10-27 11:18] LABS: HEMATOCRIT 38.2 % (37.0-47.0); HEMOGLOBIN 12.2 g/dl (12.5-16.0); MEAN CELL VOLUME 90 fl (80.0-100.0); MEAN CORPUSCULAR HEMOGLOBIN 29 pg (27.0-31.0); MEAN CORPUSCULAR HGB CONC 32 g/dl (33.0-37.0); MEAN PLATELET VOLUME 12.7 fl (7.4-10.4); PLATELET COUNT 184 K/mm3 (130-400); RED BLOOD COUNT 4.25 M/mm3 (4.10-5.30); REDCELL DISTRIBUTION WIDTH-CV 16.6 % (11.5-14.5)
[2020-10-27 11:26] LABS: ALBUMIN 3.6 gm/dL (3.5-5.0); BILIRUBIN,TOTAL 0.3 mg/dL (0.0-1.0); CALCIUM 8.3 mg/dL (8.4-10.2); CREATININE, serum 0.89 (0.52-1.25); TOTAL PROTEIN 6.8 gm/dL (6.4-8.2)
[2020-10-27 11:41] LABS: BAND 5 % (0-10); EOSINOPHIL 5 % (0-4); LYMPHOCYTE 18 % (20.0-51.0); NEUTROPHILS 68 % (42.0-75.2); PLATELET ESTIMATE NORMAL (NORMAL)
[2020-11-10 12:14] VITALS: BP 94/60; PULSE 74; TEMP 97.5
[2020-11-17 11:46] VITALS: BP 111/70; PULSE 72; TEMP 98.2
[2020-11-24 11:04] VITALS: BP 99/67; PULSE 76; TEMP 97.5
[2020-12-08 11:06] VITALS: BP 117/75; PULSE 68; TEMP 98.2
[2020-12-15 11:20] VITALS: BP 98/64; PULSE 67; TEMP 98.4
[2020-12-22 11:50] VITALS: BP 95/58; PULSE 62; TEMP 98
[~2021-01-05] VITALS: Ht 170.2 cm; Wt 46.4 kg
[2021-01-05 11:06] VITALS: BP 123/67; PULSE 71; TEMP 97
== END 2021-01-11 | disposition home or self-care (01) ==
LOC: EUO
PROVIDERS: Internal Medicine Medical Oncology
DX: Z95.9 Presence of cardiac and vascular implant and graft, unspecified (principal)

== ENCOUNTER 2021-01-22 14:00 | Outpatient (RCR) | payer MEDICARE, OTHER | END 2021-01-23 | disposition home or self-care (01) | LOC: MKS.ESL.PT | DX: D46.9 Myelodysplastic syndrome, unspecified (principal) ==

== ENCOUNTER 2021-02-09 10:52 | Outpatient (CLI) | payer MEDICARE, OTHER ==
[2021-02-09] VITALS (9 sets, daily range): BP systolic 110–129; BP diastolic 78–87; PULSE 90–106; TEMP 98.6
[~2021-02-09] VITALS: Ht 170.2 cm; Wt 46.8 kg
== END 2021-02-09 14:38 | disposition home or self-care (01) ==
LOC: EUO 10:52
DX: G61.81 Chronic inflammatory demyelinating polyneuritis (principal)
CPT/HCPCS: J1569

== ENCOUNTER 2021-03-15 09:30 | Outpatient (RCR) | payer MEDICARE, OTHER ==
[2021-01-12 11:17] VITALS: BP 119/79; PULSE 69; TEMP 98.4
[2021-01-19 11:26] VITALS: BP 105/68; PULSE 73; TEMP 98.2
[2021-01-19 11:30] LABS: HEMATOCRIT 40.3 % (37.0-47.0); HEMOGLOBIN 12.5 g/dl (12.5-16.0); MEAN CELL VOLUME 92 fl (80.0-100.0); MEAN CORPUSCULAR HEMOGLOBIN 28 pg (27.0-31.0); MEAN CORPUSCULAR HGB CONC 31 g/dl (33.0-37.0); MEAN PLATELET VOLUME 12.5 fl (7.4-10.4); PLATELET COUNT 174 K/mm3 (130-400); REDCELL DISTRIBUTION WIDTH-CV 14.4 % (11.5-14.5)
[2021-01-19 13:35] LABS: EOSINOPHIL 1 % (0-4); LYMPHOCYTE 9 % (20.0-51.0); NEUTROPHILS 81 % (42.0-75.2)
[2021-01-19 13:40] LABS: HYPOCHROMIA 2+; PLATELET ESTIMATE NORMAL (NORMAL)
[2021-01-19 13:41] LABS: TEAR DROP CELLS 1+
[2021-01-26 11:00] VITALS: BP 106/63; PULSE 71; TEMP 98.3
[2021-02-02 11:20] VITALS: BP 98/65; PULSE 68; TEMP 98.2
[2021-02-16 11:15] VITALS: BP 102/71; PULSE 71; TEMP 98
[2021-02-23 11:11] VITALS: BP 116/77; PULSE 72; TEMP 98
[2021-03-02 11:24] VITALS: BP 112/72; PULSE 63; TEMP 98.6
[2021-03-09 11:39] VITALS: BP 109/76; PULSE 75; TEMP 98
[~2021-03-15] VITALS: Ht 170.2 cm; Wt 61.0 kg
[~2021-03-15 09:30] MED LIST changes: +PREDNISONE 5MG5 MG PO; -PREDNISONE10 MG PO; +SYNTHROID0.137 MG PO
[2021-03-15 09:40] VITALS: BP 108/70; PULSE 100; TEMP 97.9
== END 2021-03-15 11:00 | disposition home or self-care (01) ==
LOC: EUO 09:30
PROVIDERS: Internal Medicine
DX: D46.A Refractory cytopenia with multilineage dysplasia (principal); D70.8 Other neutropenia

== ENCOUNTER 2021-03-15 11:15 | Outpatient (RCR) | payer MEDICARE, OTHER | END 2021-03-16 | disposition home or self-care (01) | LOC: MKS.ESL.OT | DX: G61.81 Chronic inflammatory demyelinating polyneuritis (principal); D46.9 Myelodysplastic syndrome, unspecified ==

== ENCOUNTER 2021-03-23 10:52 | Outpatient (CLI) | payer MEDICARE, OTHER ==
[2021-03-23] VITALS (13 sets, daily range): BP systolic 105–139; BP diastolic 79–94; PULSE 58–67; TEMP 98.1–98.5
[~2021-03-23] VITALS: Ht 170.2 cm; Wt 63.8 kg
== END 2021-03-23 16:08 | disposition home or self-care (01) ==
LOC: EUO 10:52
DX: G61.81 Chronic inflammatory demyelinating polyneuritis (principal)
CPT/HCPCS: J1569

== ENCOUNTER 2021-05-04 10:52 | Outpatient (CLI) | payer MEDICARE, OTHER ==
[~2021-05-04] VITALS: Ht 170.2 cm; Wt 65.0 kg
[2021-05-04] VITALS (10 sets, daily range): BP systolic 123–146; BP diastolic 75–97; PULSE 61–75; TEMP 97.7–98.1
--- NOTE | 2021-05-04 16:15 | NUR ---
Pt assisted out to 's car by wheelchair following IGG infusion.
== END 2021-05-04 16:40 | disposition home or self-care (01) ==
LOC: EUO 10:52
DX: G61.81 Chronic inflammatory demyelinating polyneuritis (principal)
CPT/HCPCS: J1569

== ENCOUNTER 2021-05-11 11:00 | Outpatient (RCR) | payer MEDICARE, OTHER ==
[2021-04-20 11:45] VITALS: BP 147/68; PULSE 81; TEMP 98.6
[2021-04-27 11:13] VITALS: BP 130/79; PULSE 77; TEMP 98.3
[~2021-05-11] VITALS: Ht 170.2 cm; Wt 63.5 kg
[~2021-05-11 11:00] MED LIST changes: -MASON NATURAL2000 IU PO; +SYNTHROID0.1 MG/TAB PO; -SYNTHROID0.137 MG PO; +VITAMIND3 5000 PO
[2021-05-11 11:30] VITALS: BP 122/74; PULSE 74; TEMP 98.3
[2021-06-01] MEDS ORDERED: NORCO 325 MG-51 TAB PO (11:01)
[2021-06-22] MEDS ORDERED: CELEBREX 1100 MG/CAP PO (11:12)
[2021-06-22] MEDS ORDERED: UROCIT-K 5540 MG/TAB PO (11:13)
[2021-06-22] MEDS ORDERED: ALDACTONE 25MG25 M1 PO (11:13)
== END 2021-05-14 | disposition home or self-care (01) ==
LOC: EUO
DX: D72.819 Decreased white blood cell count, unspecified (principal); D46.A Refractory cytopenia with multilineage dysplasia

== ENCOUNTER → 2021-05-14 | Outpatient (RCR) | payer MEDICARE, OTHER ==
[~2021-05-14] MED LIST changes: +CENTRUM SILVER1 CTB PO; +FOSAMAX 70MG TA70 MG PO; +HCTZ12.5TAB PO; +PHARMASSURE ZIN50 MG PO; +PRECOSE50 MG PO; +UROCIT-K 5540 MG/TAB PO; +VITAMIN B650 MG PO
== END | disposition home or self-care (01) ==
LOC: MKS.ESL.PT
DX: D46.9 Myelodysplastic syndrome, unspecified (principal); I10 Essential (primary) hypertension; G61.81 Chronic inflammatory demyelinating polyneuritis

== ENCOUNTER 2021-05-22 15:01 | Emergency (ER) | payer MEDICARE, OTHER ==
[~2021-05-22] VITALS: Ht 170.2 cm; Wt 62.7 kg
[~2021-05-22 15:01] MED LIST changes: -CENTRUM SILVER1 CTB PO; -FOSAMAX 70MG TA70 MG PO; -HCTZ12.5TAB PO; +MASON NATURAL2000 IU PO; -PHARMASSURE ZIN50 MG PO; -PRECOSE50 MG PO; -SYNTHROID0.1 MG/TAB PO; +SYNTHROID0.137 MG PO; -UROCIT-K 5540 MG/TAB PO; -VITAMIN B650 MG PO; -VITAMIND3 5000 PO
[2021-05-22 15:11] VITALS: TEMP 98.9
[2021-05-22] MEDS ORDERED: NORCO 325 MG-51 TAB PO (16:13)
[2021-05-22 17:33] VITALS: BP 134/78; PULSE 91
== END 2021-05-22 17:34 | disposition home or self-care (01) ==
LOC: COL.ER 15:01
DX: S82.852A Displaced trimalleolar fracture of left lower leg, initial encounter for closed fracture (principal); Z88.6 Allergy status to analgesic agent; X50.1XXA Overexertion from prolonged static or awkward postures, initial encounter
CPT/HCPCS: J3010

== ENCOUNTER 2021-06-08 11:00 | Outpatient (RCR) | payer MEDICARE, OTHER ==
[2021-05-18 11:30] VITALS: BP 126/72; PULSE 62; TEMP 97.2
[2021-05-18 11:34] VITALS: BP 121/80; PULSE 70; TEMP 98.6
[2021-05-25 11:11] VITALS: BP 112/74; PULSE 60; TEMP 97.7
[2021-06-01 10:56] VITALS: BP 116/77; PULSE 90; TEMP 97.7
[~2021-06-08] VITALS: Ht 170.2 cm; Wt 63.5 kg
[~2021-06-08 11:00] MED LIST changes: -MASON NATURAL2000 IU PO; +SYNTHROID0.1 MG/TAB PO; -SYNTHROID0.137 MG PO; +VITAMIND3 5000 PO
[2021-06-08 11:56] VITALS: BP 116/66; PULSE 68; TEMP 97.3
[2021-06-22] MEDS ORDERED: CELEBREX 1100 MG/CAP PO (11:12)
[2021-06-22] MEDS ORDERED: UROCIT-K 5540 MG/TAB PO (11:13)
[2021-06-22] MEDS ORDERED: ALDACTONE 25MG25 M1 PO (11:13)
== END 2021-06-14 | disposition home or self-care (01) ==
LOC: EUO
DX: D70.8 Other neutropenia (principal); D46.A Refractory cytopenia with multilineage dysplasia

== ENCOUNTER 2021-06-13 13:15 | Outpatient (RCR) | payer MEDICARE, OTHER ==
[2021-06-22] MEDS ORDERED: CELEBREX 1100 MG/CAP PO (11:12)
[2021-06-22] MEDS ORDERED: UROCIT-K 5540 MG/TAB PO (11:13)
[2021-06-22] MEDS ORDERED: ALDACTONE 25MG25 M1 PO (11:13)
== END 2021-06-14 | disposition home or self-care (01) ==
LOC: MKS.ESL.OT
DX: G61.81 Chronic inflammatory demyelinating polyneuritis (principal); D46.9 Myelodysplastic syndrome, unspecified; I10 Essential (primary) hypertension

== ENCOUNTER 2021-06-15 10:52 | Outpatient (CLI) | payer MEDICARE, OTHER ==
[2021-06-15] VITALS (11 sets, daily range): BP systolic 114–142; BP diastolic 52–107; PULSE 61–72; TEMP 98.2–98.4
[~2021-06-15] VITALS: Ht 170.2 cm; Wt 66.0 kg
[~2021-06-15 10:52] MED LIST changes: +MASON NATURAL2000 IU PO; -SYNTHROID0.1 MG/TAB PO; +SYNTHROID0.137 MG PO; -VITAMIND3 5000 PO
== END 2021-06-15 16:55 | disposition home or self-care (01) ==
LOC: EUO 10:52
DX: G61.81 Chronic inflammatory demyelinating polyneuritis (principal)
CPT/HCPCS: J1569

== ENCOUNTER 2021-07-13 11:00 | Outpatient (RCR) | payer MEDICARE, OTHER ==
[2021-06-22 10:58] VITALS: BP 119/89; PULSE 97; TEMP 97.8
[2021-06-29 11:19] VITALS: BP 121/85; PULSE 68; TEMP 97.9
[2021-07-06 11:10] VITALS: BP 113/71; PULSE 58; TEMP 97.7
[~2021-07-13] VITALS: Ht 170.2 cm; Wt 63.5 kg
[~2021-07-13 11:00] MED LIST changes: -MASON NATURAL2000 IU PO; +SYNTHROID0.1 MG/TAB PO; -SYNTHROID0.137 MG PO; +UROCIT-K 5540 MG/TAB PO; +VITAMIND3 5000 PO
[2021-07-13 11:39] VITALS: BP 122/75; PULSE 63; TEMP 97.9
== END 2021-07-14 | disposition home or self-care (01) ==
LOC: EUO
DX: D46.A Refractory cytopenia with multilineage dysplasia (principal); D70.8 Other neutropenia

== ENCOUNTER 2021-07-13 14:00 | Outpatient (RCR) | payer MEDICARE, OTHER | END 2021-07-14 | disposition home or self-care (01) | LOC: MKS.ESL.OT | DX: G61.81 Chronic inflammatory demyelinating polyneuritis (principal); K50.90 Crohn's disease, unspecified, without complications; I10 Essential (primary) hypertension ==

== ENCOUNTER 2021-07-27 11:04 | Outpatient (CLI) | payer MEDICARE, OTHER ==
[~2021-07-27] VITALS: Ht 170.2 cm; Wt 67.3 kg
[2021-07-27] VITALS (8 sets, daily range): BP systolic 105–133; BP diastolic 75–92; PULSE 56–61; TEMP 97.7
--- NOTE | 2021-07-27 11:32 | NUR ---
Patient here for IVIG administration. Discussed vascular access options for IV medication administration. PICC has been in place for awhile. To discuss options with her . Once options are discussed with her and a decision made, then I will contact her primary care physician.
--- NOTE | 2021-07-27 16:10 | NUR ---
PICC flushed after infusion and wrapped with new eveline bandage. pt assisted to wheelchair and escorted to exit by staff. Pt tolerated infusion without complication.
== END 2021-07-27 16:10 | disposition home or self-care (01) ==
LOC: EUO 11:04
DX: G61.81 Chronic inflammatory demyelinating polyneuritis (principal)
CPT/HCPCS: J1569

== ENCOUNTER 2021-08-08 14:45 | Outpatient (RCR) | payer MEDICARE, OTHER ==
[2021-08-10] MEDS ORDERED: CENTRUM SILVER1 CTB PO (16:17)
[2021-08-10] MEDS ORDERED: TUMS500 MG PO (16:17)
[2021-08-10] MEDS ORDERED: PHARMASSURE ZIN50 MG PO (16:21)
[2021-08-10] MEDS ORDERED: AMITIZA24 MCG PO (16:22)
[2021-08-10] MEDS ORDERED: VITAMIN B650 MG PO (16:23)
[2021-08-10] MEDS ORDERED: FOSAMAX 70MG TA70 MG PO (16:26)
[2021-08-10] MEDS ORDERED: PRECOSE50 MG PO (16:27)
[2021-08-10] MEDS ORDERED: HCTZ12.5TAB PO (16:27)
== END 2021-08-14 | disposition home or self-care (01) ==
LOC: MKS.ESL.PT
DX: D46.9 Myelodysplastic syndrome, unspecified (principal); I10 Essential (primary) hypertension; G61.81 Chronic inflammatory demyelinating polyneuritis

== ENCOUNTER 2021-08-10 11:00 | Outpatient (RCR) | payer MEDICARE, OTHER ==
[2021-07-20 12:00] VITALS: BP 98/58; PULSE 77; TEMP 98
--- NOTE | 2021-08-03 11:00 | NUR ---
Here for cares. PICC dressing change done with sterile techique. Reported she had a discussion with her in regard to her PICC. They would like it left in place. Advised for her to contact her primary care physician and let them know about their decision. Since her primary care physician is at [place], she will contact them. Card provided with [facility]'s phone number. Await orders and/or communication with physician.
[2021-08-03 11:26] VITALS: BP 110/74; PULSE 63; TEMP 97.9
[~2021-08-10] VITALS: Ht 170.2 cm; Wt 66.1 kg
--- NOTE | 2021-08-10 11:00 | NUR ---
Here for PICC cares. She has contacted her primary care physician in regard to a PICC exchange procedure. Awaiting a return phone call.
[2021-08-10 11:10] VITALS: BP 117/78; PULSE 75; TEMP 97.9
[2021-08-10] MEDS ORDERED: TUMS500 MG PO (16:17)
[2021-08-10] MEDS ORDERED: CENTRUM SILVER1 CTB PO (16:17)
[2021-08-10] MEDS ORDERED: PHARMASSURE ZIN50 MG PO (16:21)
[2021-08-10] MEDS ORDERED: AMITIZA24 MCG PO (16:22)
[2021-08-10] MEDS ORDERED: VITAMIN B650 MG PO (16:23)
[2021-08-10] MEDS ORDERED: FOSAMAX 70MG TA70 MG PO (16:26)
[2021-08-10] MEDS ORDERED: HCTZ12.5TAB PO (16:27)
[2021-08-10] MEDS ORDERED: PRECOSE50 MG PO (16:27)
== END 2021-08-14 | disposition still patient (30) ==
LOC: EUO
DX: D72.819 Decreased white blood cell count, unspecified (principal); D46.A Refractory cytopenia with multilineage dysplasia

== ENCOUNTER 2021-08-31 11:00 | Outpatient (RCR) | payer MEDICARE, OTHER ==
--- NOTE | 2021-08-17 11:10 | NUR ---
Patient reports that she has contacted her primary care physician with possible order for an exchange. awaiting orders.
[2021-08-17 11:32] VITALS: BP 116/72; PULSE 60; TEMP 97.5
[2021-08-24 11:00] VITALS: BP 115/53; PULSE 62; TEMP 98.3
[~2021-08-31] VITALS: Ht 170.2 cm; Wt 65.7 kg
[~2021-08-31 11:00] MED LIST changes: +CENTRUM SILVER1 CTB PO; +FOSAMAX 70MG TA70 MG PO; +HCTZ12.5TAB PO; +PHARMASSURE ZIN50 MG PO; +PRECOSE50 MG PO; +VITAMIN B650 MG PO
[2021-08-31 11:47] VITALS: BP 103/73; PULSE 66; TEMP 98.4
== END 2021-09-13 | disposition home or self-care (01) ==
LOC: EUO
DX: D72.819 Decreased white blood cell count, unspecified (principal); D46.A Refractory cytopenia with multilineage dysplasia
CPT/HCPCS: C1751; C1892

== ENCOUNTER → 2021-09-07 | Outpatient (CLI) | payer MEDICARE, OTHER ==
[~2021-09-07] VITALS: Ht 170.2 cm; Wt 78.3 kg
[2021-09-07 11:50] VITALS: BP 122/82; PULSE 75; TEMP 98.4
[2021-09-07 12:05] VITALS: BP 116/76; PULSE 74
[2021-09-07 12:35] VITALS: BP 118/76; PULSE 71
[2021-09-07 13:05] VITALS: BP 117/75; PULSE 69
[2021-09-07 13:20] VITALS: BP 134/89; PULSE 74
[2021-09-07 14:05] VITALS: BP 134/87; PULSE 69
== END ==
LOC: EUO 10:48
DX: G61.81 Chronic inflammatory demyelinating polyneuritis (principal)
CPT/HCPCS: J1569

== ENCOUNTER 2021-09-12 15:15 | Outpatient (RCR) | payer MEDICARE, OTHER | END 2021-09-13 | disposition still patient (30) | LOC: MKS.ESL.PT | DX: D64.9 Anemia, unspecified (principal); D46.9 Myelodysplastic syndrome, unspecified; I10 Essential (primary) hypertension; G61.81 Chronic inflammatory demyelinating polyneuritis ==

== ENCOUNTER 2021-10-10 14:30 | Outpatient (RCR) | payer MEDICARE, OTHER ==
[2021-10-26] MEDS ORDERED: BACTRIM DS 8001 TAB PO (10:47)
== END 2021-10-14 | disposition home or self-care (01) ==
LOC: MKS.ESL.PT
DX: G61.81 Chronic inflammatory demyelinating polyneuritis (principal); D46.9 Myelodysplastic syndrome, unspecified; I10 Essential (primary) hypertension

== ENCOUNTER 2021-10-12 11:00 | Outpatient (RCR) | payer MEDICARE, OTHER ==
[2021-09-14 11:45] VITALS: BP 122/73; PULSE 63; TEMP 98.6
[2021-09-21 10:57] VITALS: BP 125/77; PULSE 62; TEMP 97.6
[2021-09-28 11:10] VITALS: BP 97/62; PULSE 69; TEMP 98.4
[2021-10-05 11:08] VITALS: BP 97/58; PULSE 63; TEMP 97.6
[~2021-10-12] VITALS: Ht 170.2 cm; Wt 66.4 kg
[2021-10-26] MEDS ORDERED: BACTRIM DS 8001 TAB PO (10:47)
== END 2021-10-14 | disposition home or self-care (01) ==
LOC: EUO
DX: Z45.2 Encounter for adjustment and management of vascular access device (principal)

== ENCOUNTER 2021-10-19 10:51 | Outpatient (CLI) | payer MEDICARE, OTHER ==
[~2021-10-19] VITALS: Ht 170.2 cm; Wt 68.1 kg
[2021-10-19] VITALS (7 sets, daily range): BP systolic 120–142; BP diastolic 78–98; PULSE 59–66; TEMP 97.7–97.8
--- NOTE | 2021-10-19 15:00 | NUR ---
PICC flushed and wrapped with eveline wrap. Pt assisted to wheelchair with standby assist. She is assisted out to lobby and into 's car.
[2021-10-26] MEDS ORDERED: BACTRIM DS 8001 TAB PO (10:47)
== END 2021-10-19 15:00 | disposition home or self-care (01) ==
LOC: EUO 10:51
DX: G61.81 Chronic inflammatory demyelinating polyneuritis (principal)
CPT/HCPCS: J1569

== ENCOUNTER 2021-10-23 08:26 | Emergency (ER) | payer MEDICARE, OTHER ==
[~2021-10-23] VITALS: Ht 170.2 cm; Wt 67.3 kg
[2021-10-23 08:28] VITALS: TEMP 99.1
[2021-10-23 08:57] LABS: BASO # 0.1 K/mm3 (0.0-0.2); BASO % 0.9 % (0.0-2.0); EOS # 0.1 K/mm3 (0.0-0.7); EOS % 2.3 % (0.0-4.0); GRAN # 4.7 K/mm3 (1.4-6.5); HEMATOCRIT 40.8 % (37.0-47.0); HEMOGLOBIN 13.5 g/dl (12.5-16.0); LYMPH # 0.2 K/mm3 (1.2-3.4); LYMPH % 2.7 % (20.0-51.0); MEAN CELL VOLUME 87 fl (80.0-100.0); MEAN CORPUSCULAR HEMOGLOBIN 29 pg (27-31); MEAN CORPUSCULAR HGB CONC 33 g/dl (33.0-37.0); MEAN PLATELET VOLUME 12.1 fl (7.4-10.4); MONO # 0.5 K/mm3 (0.1-0.6); MONO % 9.4 % (1.7-9.3); PLATELET COUNT 178 K/mm3 (130-400); RED BLOOD COUNT 4.67 M/mm3 (4.10-5.30); REDCELL DISTRIBUTION WIDTH-CV 14.6 % (11.5-14.5)
[2021-10-23 09:12] LABS: ALBUMIN 3.6 gm/dL (3.4-4.8); BILIRUBIN,TOTAL 0.4 mg/dL (0.2-1.2); CREATININE, serum 1.32 mg/dL (0.57-1.11); POTASSIUM 4.4 mmol/L (3.5-4.5); TOTAL PROTEIN 8.4 gm/dL (6.2-8.1)
[2021-10-23 11:37] LABS: COLLECTION METHOD CLEAN CATCH
[2021-10-23 11:45] LABS: MUCOUS Present (NOT PRESENT); SQUAMOUS EPITHELIAL 0-2 /hpf (0-10); URINE BACTERIA None Seen /hpf (NONE SEEN)
[2021-10-23 11:47] LABS: URINE COLOR Yellow (YELLOW)
[2021-10-23 11:48] LABS: PH 5 (5-8); URINE APPEARANCE Hazy (CLEAR/HAZY); URINE BLOOD 1+ (NEGATIVE); URINE GLUCOSE Negative (NEGATIVE); URINE KETONE Negative (NEGATIVE); URINE NITRATE Positive (NEGATIVE); URINE PROTEIN(semi-quant) 1+ (NEGATIVE); URINE UROBILINOGEN Negative (NEGATIVE)
[2021-10-23] MEDS ORDERED: OMNICEF 300MG300 MG PO (12:40)
[2021-10-23 12:45] VITALS: BP 105/73
[2021-10-23 13:28] VITALS: PULSE 84
--- NOTE | 2021-10-23 14:34 | NUR ---
flat screen worker met with patient and her spouse to discuss home health services. Worker provided Medicare.gov share report for home health services. Spouse states they have utilized [facility] health and they were excellent. Spouse states they want to utilize [facility] health again. [facility] case[facility] intake and secured patient's primary care provider appointment with Dr Chey Boyd on 10/25/21 at 10:[address]am. Dr Boyd will then write home health orders for physical and occupational therapies as well as [facility]. Worker faxed [place] caseworker intake patient's clinical records as well as [facility]. Worker contacted Zack with [facility] and advised of the above information.
--- NOTE | 2021-10-23 14:39 | NUR ---
unit control worker attempted to contact patient's durable power of commercial litigation attorney for health care several times with no answer or ability to leave a message. Will continue efforts to reach Naima to discuss discharge planning. This worker and Lionel met with Dr Richardson to discuss the psychiatric evaluation where patient is determined not to have capacity to make his decisions at this time.
[2021-10-26] MEDS ORDERED: BACTRIM DS 8001 TAB PO (10:47)
== END 2021-10-23 13:30 | disposition home or self-care (01) ==
LOC: COL.ER 08:26
PROVIDERS: Family Medicine
DX: N30.90 Cystitis, unspecified without hematuria (principal); R11.0 Nausea; R94.5 Abnormal results of liver function studies; Z20.822 Contact with and (suspected) exposure to COVID-19
CPT/HCPCS: J0696; J2405; J7030; Q9967

== ENCOUNTER 2021-11-09 11:00 | Outpatient (RCR) | payer MEDICARE, OTHER ==
[2021-10-26 11:23] VITALS: BP 124/69; PULSE 63; TEMP 97.2
[2021-11-02 11:00] VITALS: BP 88/54; PULSE 68; TEMP 97.9
[~2021-11-09] VITALS: Ht 170.2 cm; Wt 66.7 kg
[2021-11-09 10:59] VITALS: BP 106/70; PULSE 73; TEMP 97.3
[~2021-11-09 11:00] MED LIST changes: +BACTRIM DS 8001 TAB PO
== END 2021-11-14 | disposition home or self-care (01) ==
LOC: EUO
DX: D46.A Refractory cytopenia with multilineage dysplasia (principal); D70.8 Other neutropenia

== ENCOUNTER 2021-11-12 14:30 | Outpatient (RCR) | payer MEDICARE, OTHER | END 2021-11-14 | disposition home or self-care (01) | LOC: MKS.ESL.PT | DX: D46.9 Myelodysplastic syndrome, unspecified (principal); G61.81 Chronic inflammatory demyelinating polyneuritis; I10 Essential (primary) hypertension ==

== ENCOUNTER 2021-11-30 10:56 | Outpatient (CLI) | payer MEDICARE, OTHER ==
[~2021-11-30] VITALS: Ht 170.2 cm; Wt 67.3 kg
[2021-11-30] VITALS (7 sets, daily range): BP systolic 100–135; BP diastolic 75–89; PULSE 56–61; TEMP 98.2
== END 2021-11-30 15:30 | disposition home or self-care (01) ==
LOC: EUO 10:56
DX: C90.00 Multiple myeloma not having achieved remission (principal)
CPT/HCPCS: J1569

== ENCOUNTER 2022-01-04 11:00 | Outpatient (RCR) | payer MEDICARE, OTHER ==
[2021-12-21 11:18] VITALS: BP 104/64; PULSE 63; TEMP 98
[2021-12-28 11:00] VITALS: BP 104/70; PULSE 60; TEMP 98.1
[~2022-01-04] VITALS: Ht 170.2 cm; Wt 67.5 kg
[2022-01-04 11:13] VITALS: BP 98/60; PULSE 60; TEMP 98
== END 2022-01-14 | disposition home or self-care (01) ==
LOC: EUO
DX: D46.9 Myelodysplastic syndrome, unspecified (principal)

== ENCOUNTER → 2022-01-14 | Outpatient (RCR) | payer MEDICARE, OTHER | END | disposition home or self-care (01) | LOC: MKS.ESL.PT → MKS.ESL.OT 12-26 13:45 → MKS.ESL.PT 12-27 12:45 | DX: D46.9 Myelodysplastic syndrome, unspecified (principal); R53.1 Weakness ==

== ENCOUNTER 2022-04-12 11:00 | Outpatient (RCR) | payer MEDICARE, OTHER ==
[2022-03-22 11:31] VITALS: BP 125/80; PULSE 63; TEMP 97.9
[2022-03-29 11:07] VITALS: BP 110/75; PULSE 61; TEMP 98.1
[~2022-04-12] VITALS: Ht 170.2 cm; Wt 70.3 kg
[2022-04-12 11:20] VITALS: BP 113/78; PULSE 68; TEMP 98.2
== END 2022-04-16 | disposition home or self-care (01) ==
LOC: EUO
DX: D46.A Refractory cytopenia with multilineage dysplasia (principal)

== ENCOUNTER 2022-05-13 13:00 | Outpatient (RCR) | payer MEDICARE, OTHER | END 2022-05-14 | disposition home or self-care (01) | LOC: MKS.ESL.PT | DX: G61.81 Chronic inflammatory demyelinating polyneuritis (principal); D46.9 Myelodysplastic syndrome, unspecified ==

== ENCOUNTER 2022-05-17 10:39 | Outpatient (CLI) | payer MEDICARE, OTHER ==
[2022-05-17] VITALS (7 sets, daily range): BP systolic 123–146; BP diastolic 63–89; PULSE 56–80; TEMP 97.9–98.2
[~2022-05-17] VITALS: Ht 170.2 cm; Wt 70.6 kg
--- NOTE | 2022-05-17 14:00 | NUR ---
PT UP IN W/C, PT ABLE TO TRANSFER SELF WITH STANDBY ASSIST, STATES RIGHT SIDE DOES NOT HURT UNLESS MOVING OR TAKING A DEEP BREATH, NO CHANGES BEING HERE WITH PAIN. PT WAS INSTRUCTED IF WORSENS OR NEEDS CARE TO GO TO ER, PCP IN [facility]
== END 2022-05-17 14:15 | disposition home or self-care (01) ==
LOC: EUO 10:39
DX: G61.81 Chronic inflammatory demyelinating polyneuritis (principal)
CPT/HCPCS: J1569

== ENCOUNTER 2022-06-14 11:00 | Outpatient (RCR) | payer MEDICARE, OTHER ==
[2022-05-24 12:04] VITALS: BP 93/63; PULSE 103; TEMP 98.4
[2022-05-31 11:00] VITALS: BP 107/67; PULSE 90; TEMP 98.9
[2022-06-07 11:04] VITALS: BP 98/66; PULSE 67; TEMP 98.5
[~2022-06-14] VITALS: Ht 170.2 cm; Wt 69.3 kg
[2022-06-14 11:29] VITALS: BP 88/57; PULSE 66; TEMP 98.1
== END 2022-06-14 11:34 | disposition home or self-care (01) ==
LOC: EUO 11:00
DX: D46.A Refractory cytopenia with multilineage dysplasia (principal)

== ENCOUNTER 2022-07-11 13:00 | Outpatient (RCR) | payer MEDICARE, OTHER ==
[~2022-07-11 13:00] MED LIST changes: -SYNTHROID0.1 MG/TAB PO; +SYNTHROID0.112 MG/T PO
== END 2022-07-14 | disposition home or self-care (01) ==
LOC: MKS.ESL.PT
DX: D46.9 Myelodysplastic syndrome, unspecified (principal); G61.81 Chronic inflammatory demyelinating polyneuritis; I10 Essential (primary) hypertension

== ENCOUNTER 2022-07-12 11:00 | Outpatient (RCR) | payer MEDICARE, OTHER ==
[2022-06-21 11:48] VITALS: BP 102/70; PULSE 63; TEMP 98.4
--- NOTE | 2022-06-21 11:52 | NUR ---
Pt tolerated dressing change well. her VS were within normal limits prior to dressing change. the pt's skin around PICC site was clean and intact, minimal redness noted when tegaderm was pulled away. circumference of pt's right arm measured 27 cm and the dressing, statlock, and cap were changed. pt was assisted to the main lobby via wheelchair where was waiting for her, pt was free from complaints and concerns at time of discharge.
[2022-07-05 11:14] VITALS: BP 147/91; PULSE 65; TEMP 98.1
[~2022-07-12] VITALS: Ht 170.2 cm; Wt 69.0 kg
[2022-07-12 11:19] VITALS: BP 134/85; PULSE 70; TEMP 97.6
== END 2022-07-12 11:39 | disposition home or self-care (01) ==
LOC: EUO 11:00
DX: D46.A Refractory cytopenia with multilineage dysplasia (principal)

== ENCOUNTER 2022-08-09 10:57 | Outpatient (CLI) | payer MEDICARE, OTHER ==
[~2022-08-09] VITALS: Ht 170.2 cm; Wt 69.7 kg
[2022-08-09] VITALS (7 sets, daily range): BP systolic 101–137; BP diastolic 49–89; PULSE 59–64; TEMP 97.7
--- NOTE | 2022-08-09 14:35 | NUR ---
Pt tolerated infusion without issue. PICC flushed, wrapped with coban. Pt transfers self to wheelchair and is assisted out to 's car with belongings.
== END 2022-08-09 14:35 | disposition home or self-care (01) ==
LOC: EUO 10:57
DX: G61.81 Chronic inflammatory demyelinating polyneuritis (principal)
CPT/HCPCS: J1569

== ENCOUNTER → 2022-11-14 | Outpatient (RCR) | payer MEDICARE, OTHER | END | disposition home or self-care (01) | LOC: MKS.ESL.OT → MKS.ESL.PT 10-17 07:48 → MKS.ESL.OT 10-21 13:00 → MKS.ESL.PT 11-04 13:45 → MKS.ESL.OT 11-07 13:45 | DX: D46.9 Myelodysplastic syndrome, unspecified (principal); I10 Essential (primary) hypertension; R53.1 Weakness ==

== ENCOUNTER 2022-12-12 13:45 | Outpatient (RCR) | payer MEDICARE, OTHER | END 2022-12-14 | disposition home or self-care (01) | LOC: MKS.ESL.OT | DX: D46.9 Myelodysplastic syndrome, unspecified (principal); I10 Essential (primary) hypertension; G61.81 Chronic inflammatory demyelinating polyneuritis; S82.852D Displaced trimalleolar fracture of left lower leg, subsequent encounter for closed fracture with routine healing; R53.1 Weakness; Z98.890 Other specified postprocedural states ==

== ENCOUNTER 2023-02-07 11:00 | Outpatient (RCR) | payer MEDICARE, OTHER ==
[2023-01-17 11:00] VITALS: BP 110/77; PULSE 65; TEMP 98.6
[2023-01-24 11:01] VITALS: BP 110/72; PULSE 67; TEMP 98
[2023-01-31 11:00] VITALS: BP 114/71; PULSE 119; TEMP 98.5
[~2023-02-07] VITALS: Ht 170.2 cm; Wt 71.8 kg
[2023-02-07] VITALS (8 sets, daily range): BP systolic 106–129; BP diastolic 73–94; PULSE 54–61; TEMP 97.9
[~2023-02-07 11:00] MED LIST changes: -SYNTHROID0.112 MG/T PO; +SYNTHROID0.125 MG/T PO
[2023-02-07 11:13] LABS: BASO # 0.1 K/mm3 (0.0-0.2); BASO % 0.9 % (0.0-2.0); EOS # 0.1 K/mm3 (0.0-0.7); EOS % 0.9 % (0.0-4.0); GRAN # 4.2 K/mm3 (1.4-6.5); GRAN % 77.9 % (42.2-75.2); HEMATOCRIT 38.9 % (37.0-47.0); HEMOGLOBIN 12.6 g/dl (12.5-16.0); LYMPH # 0.7 K/mm3 (1.2-3.4); LYMPH % 13.3 % (20.0-51.0); MEAN CELL VOLUME 90 fl (80.0-100.0); MEAN CORPUSCULAR HEMOGLOBIN 29 pg (27-31); MEAN CORPUSCULAR HGB CONC 32 g/dl (33.0-37.0); MEAN PLATELET VOLUME 12.5 fl (7.4-10.4); MONO # 0.3 K/mm3 (0.1-0.6); MONO % 6.3 % (1.7-9.3); PLATELET COUNT 168 K/mm3 (130-400); RED BLOOD COUNT 4.31 M/mm3 (4.10-5.30); REDCELL DISTRIBUTION WIDTH-CV 14.1 % (11.5-14.5)
[2023-02-07 11:32] LABS: ALBUMIN 3.6 gm/dL (3.4-4.8); BILIRUBIN,TOTAL 0.5 mg/dL (0.2-1.2); CALCIUM 9.1 mg/dL (8.4-10.2); CREATININE, serum 1.2 mg/dL (0.57-1.11); POTASSIUM 4.5 mmol/L (3.5-4.5); TOTAL PROTEIN 7.4 gm/dL (6.2-8.1)
[2023-02-14] MEDS ORDERED: HAIRSKINNAILS PO (11:26)
[2023-02-14] MEDS ORDERED: LUTEIN20 M1 PO (11:26)
== END 2023-02-13 10:29 | disposition home or self-care (01) ==
LOC: EUO 11:00
PROVIDERS: Psychiatry & Neurology Neurology
DX: G61.81 Chronic inflammatory demyelinating polyneuritis (principal)
CPT/HCPCS: J1569

== ENCOUNTER 2023-03-12 13:00 | Outpatient (RCR) | payer MEDICARE, OTHER ==
[~2023-03-12 13:00] MED LIST changes: +HAIRSKINNAILS PO; +LUTEIN20 M1 PO
== END 2023-03-16 | disposition home or self-care (01) ==
LOC: MKS.ESL.PT
DX: G61.81 Chronic inflammatory demyelinating polyneuritis (principal); D46.9 Myelodysplastic syndrome, unspecified; I10 Essential (primary) hypertension

== ENCOUNTER 2023-03-14 11:00 | Outpatient (RCR) | payer MEDICARE, OTHER ==
[2023-02-14 11:03] VITALS: BP 110/73; PULSE 68; TEMP 98.3
[2023-02-21 11:05] VITALS: BP 123/85; PULSE 65; TEMP 98
[2023-02-28 11:08] VITALS: BP 101/66; PULSE 66; TEMP 98.1
[2023-03-07] VITALS (8 sets, daily range): BP systolic 100–124; BP diastolic 70–89; PULSE 57–63; TEMP 99.3
[~2023-03-14] VITALS: Ht 170.2 cm; Wt 71.6 kg
[2023-03-14 11:13] VITALS: BP 122/77; PULSE 65; TEMP 98
== END 2023-03-14 12:42 | disposition home or self-care (01) ==
LOC: EUO 11:00
DX: G61.81 Chronic inflammatory demyelinating polyneuritis (principal)
CPT/HCPCS: J1569

== ENCOUNTER 2023-04-04 11:00 | Outpatient (RCR) | payer MEDICARE, OTHER ==
[2023-03-21 10:52] VITALS: BP 144/79; PULSE 76; TEMP 98
[2023-03-28 11:13] VITALS: BP 121/79; PULSE 77; TEMP 98.1
[2023-04-04] VITALS (7 sets, daily range): BP systolic 123–132; BP diastolic 82–92; PULSE 63–67; TEMP 98.2
[~2023-04-04] VITALS: Ht 170.2 cm; Wt 71.0 kg
[~2023-04-04 11:00] MED LIST changes: +NS Flush 10 ML SYRINGE (PICC Line - 10 mL Daily if not in use) ICA SCH; +NS Flush 10 ML SYRINGE (PICC Line - 10 mL PRN) ICA
[2023-04-04] MEDS ORDERED: diphenhydrAMINE 25 MG CAP PO ONE (11:45)
[2023-04-04] MEDS ORDERED: Acetaminophen 325 MG TAB PO ONE (11:45)
[2023-04-04] MEDS ORDERED: Immune Globulin (Gammagard) 30 G/300 ML IV SOLN IV SCH (11:45)
== END 2023-04-04 16:55 | disposition home or self-care (01) ==
LOC: EUO 11:00
DX: G61.81 Chronic inflammatory demyelinating polyneuritis (principal)
CPT/HCPCS: C1751; C1892; J1569

== ENCOUNTER 2023-04-07 13:56 | Emergency (ER) | payer MEDICARE, OTHER ==
[~2023-04-07] VITALS: Ht 170.2 cm; Wt 70.0 kg
[~2023-04-07 13:56] MED LIST changes: -NS Flush 10 ML SYRINGE (PICC Line - 10 mL Daily if not in use) ICA SCH; -NS Flush 10 ML SYRINGE (PICC Line - 10 mL PRN) ICA
[2023-04-07 14:20] VITALS: TEMP 97.3
[2023-04-07] MEDS ORDERED: NORCO 325 MG-51 TAB PO (16:06)
[2023-04-07 16:55] VITALS: BP 122/79; PULSE 66
== END 2023-04-07 16:56 | disposition home or self-care (01) ==
LOC: COL.ER 13:56
DX: S92.302A Fracture of unspecified metatarsal bone(s), left foot, initial encounter for closed fracture (principal); X50.1XXA Overexertion from prolonged static or awkward postures, initial encounter; W19.XXXA Unspecified fall, initial encounter

== ENCOUNTER 2023-05-12 13:45 | Outpatient (RCR) | payer MEDICARE, OTHER ==
[~2023-05-12 13:45] MED LIST changes: +ASPIRIN 81M81 MG/TA2 PO
== END 2023-05-15 | disposition home or self-care (01) ==
LOC: MKS.ESL.PT
DX: G61.81 Chronic inflammatory demyelinating polyneuritis (principal); S82.852D Displaced trimalleolar fracture of left lower leg, subsequent encounter for closed fracture with routine healing; Z98.890 Other specified postprocedural states; X58.XXXD Exposure to other specified factors, subsequent encounter

== ENCOUNTER 2023-05-30 10:43 | Outpatient (CLI) | payer MEDICARE, OTHER ==
[~2023-05-30] VITALS: Ht 170.2 cm; Wt 71.0 kg
[2023-05-30 11:18] LABS: BASO # 0.1 K/mm3 (0.0-0.2); BASO % 1.1 % (0.0-2.0); EOS # 0.2 K/mm3 (0.0-0.7); EOS % 3.2 % (0.0-4.0); GRAN # 2.9 K/mm3 (1.4-6.5); GRAN % 62.9 % (42.2-75.2); HEMATOCRIT 42.5 % (37.0-47.0); HEMOGLOBIN 13.6 g/dl (12.5-16.0); LYMPH % 21.6 % (20.0-51.0); MEAN CELL VOLUME 89 fl (80.0-100.0); MEAN CORPUSCULAR HEMOGLOBIN 28 pg (27-31); MEAN CORPUSCULAR HGB CONC 32 g/dl (33.0-37.0); MONO # 0.5 K/mm3 (0.1-0.6); MONO % 10.6 % (1.7-9.3); PLATELET COUNT 202 K/mm3 (130-400); RED BLOOD COUNT 4.79 M/mm3 (4.10-5.30); REDCELL DISTRIBUTION WIDTH-CV 13.7 % (11.5-14.5)
[2023-05-30 11:19] LABS: BILIRUBIN,TOTAL 0.5 mg/dL (0.2-1.2); CALCIUM 9.1 mg/dL (8.4-10.2); CREATININE, serum 1.04 mg/dL (0.57-1.11); POTASSIUM 4.1 mmol/L (3.5-4.5)
[2023-05-30] MEDS ORDERED: diphenhydrAMINE 25 MG CAP PO ONE (11:30)
[2023-05-30] MEDS ORDERED: Acetaminophen 325 MG TAB PO ONE (11:30)
[2023-05-30] MEDS ORDERED: Immune Globulin (Gammagard) 30 G/300 ML IV SOLN IV SCH (11:30)
[2023-05-30 11:49] VITALS: BP 115/71; PULSE 70; TEMP 98
[2023-05-30 12:15] VITALS: BP 122/79; BP 130/57; PULSE 56
[2023-05-30 12:45] VITALS: BP 116/92; BP 137/54; PULSE 52; PULSE 60
[2023-05-30 13:30] VITALS: BP 140/83; PULSE 56
[2023-05-30 14:00] VITALS: BP 142/88; PULSE 60
[2023-05-30 14:30] VITALS: BP 154/87; PULSE 55
--- NOTE | 2023-05-30 14:47 | NUR ---
pt tolerated infusion well. vs remained within normal limits and pt assisted to main lobby via wheelchair upon discharge. IV discontinued. new appointment made.
== END 2023-05-30 14:54 | disposition home or self-care (01) ==
LOC: EUO 10:43
DX: G61.81 Chronic inflammatory demyelinating polyneuritis (principal)
CPT/HCPCS: J1569

== ENCOUNTER → 2023-06-25 | Outpatient (CLI) | payer MEDICARE, OTHER | LOC: COL.RAD 13:50 | DX: S92.312A Displaced fracture of first metatarsal bone, left foot, initial encounter for closed fracture (principal); S92.322A Displaced fracture of second metatarsal bone, left foot, initial encounter for closed fracture; S92.332A Displaced fracture of third metatarsal bone, left foot, initial encounter for closed fracture; S92.342A Displaced fracture of fourth metatarsal bone, left foot, initial encounter for closed fracture; S99.822D Other specified injuries of left foot, subsequent encounter ==

== ENCOUNTER 2023-06-27 10:53 | Outpatient (CLI) | payer MEDICARE, OTHER ==
[2023-06-27] VITALS (8 sets, daily range): BP systolic 117–130; BP diastolic 76–85; PULSE 62–69; TEMP 98.1
[~2023-06-27] VITALS: Ht 170.2 cm; Wt 71.7 kg
[2023-06-27] MEDS ORDERED: Immune Globulin (Gammagard) 30 G/300 ML IV SOLN IV SCH (11:15)
[2023-06-27] MEDS ORDERED: diphenhydrAMINE 25 MG CAP PO ONE (11:15)
[2023-06-27] MEDS ORDERED: Acetaminophen 325 MG TAB PO ONE (11:15)
[2023-06-27 12:51] LABS: BASO % 0.7 % (0.0-2.0); EOS % 0.7 % (0.0-4.0); GRAN # 3.3 K/mm3 (1.4-6.5); GRAN % 76.1 % (42.2-75.2); HEMATOCRIT 40.5 % (37.0-47.0); HEMOGLOBIN 13.1 g/dl (12.5-16.0); LYMPH # 0.7 K/mm3 (1.2-3.4); LYMPH % 15.1 % (20.0-51.0); MEAN CELL VOLUME 88 fl (80.0-100.0); MEAN CORPUSCULAR HEMOGLOBIN 29 pg (27-31); MEAN CORPUSCULAR HGB CONC 32 g/dl (33.0-37.0); MEAN PLATELET VOLUME 13.2 fl (7.4-10.4); MONO # 0.3 K/mm3 (0.1-0.6); MONO % 6.9 % (1.7-9.3); PLATELET COUNT 191 K/mm3 (130-400); RED BLOOD COUNT 4.58 M/mm3 (4.10-5.30); REDCELL DISTRIBUTION WIDTH-CV 14.2 % (11.5-14.5)
[2023-06-27 13:01] LABS: ALBUMIN 3.6 g/dL (3.4-4.8); BILIRUBIN,TOTAL 0.5 mg/dL (0.2-1.2); CALCIUM 9.6 mg/dL (8.4-10.2); CREATININE, serum 1.2 mg/dL (0.57-1.11); POTASSIUM 4.3 mEq/L (3.5-4.5); TOTAL PROTEIN 7.6 g/dl (6.2-8.1)
== END 2023-06-27 16:01 ==
LOC: EUO 10:53
PROVIDERS: Internal Medicine
DX: G61.81 Chronic inflammatory demyelinating polyneuritis (principal)
CPT/HCPCS: J1569

== ENCOUNTER 2023-09-08 09:58 | Day surgery (SDC) | payer MEDICARE, OTHER ==
[~2023-09-08] VITALS: Ht 170.2 cm; Wt 69.2 kg
[~2023-09-08 09:58] MED LIST changes: +LR 1,000 ML IV SCH; +Ondansetron 4 MG/2 ML VIAL IV PRN
[2023-09-08] MEDS ORDERED: Lidocaine PF 2% (20 MG/ML) 5 ML VIAL ONE (11:20)
[2023-09-08] MEDS ORDERED: fentaNYL 50 MCG/ML 2 ML VIAL ONE (11:20)
[2023-09-08 12:15] VITALS: BP 123/88; PULSE 67
[2023-09-08 12:30] VITALS: BP 111/77; PULSE 73
[2023-09-08 12:45] VITALS: BP 110/77; PULSE 73
[2023-09-08 13:00] VITALS: BP 128/88; PULSE 66
--- NOTE | 2023-09-08 13:39 | NUR ---
1106 Patient to [address] via wheel chair, breathing even and unlabored. Pt is alert and oriented, accompanied by her . Consents reviewed and signed by the patient's . IV established. LR infusion via gravity at [facility]. Call light in reach. Warm blanket provided.
--- NOTE | 2023-09-08 13:39 | NUR ---
Med rec. not completed before finalized by physician
[2023-09-08 13:48] VITALS: BP 123/88; PULSE 66; TEMP 98.2
--- NOTE | 2023-09-08 14:01 | NUR ---
1215 PATIENT RETURNS TO [facility] VIA CART. PT AWAKE AND ALERT. RESPIRATIONS UNLABORED. AMBULATED TO RECLINER CHAIR WITH 2:1 SBA. PT DENIES NAUSEA OR ABDOMINAL PAIN. HOOKED UP TO MONITOR AND VS OBTAINED. CALL LIGHT AT SIDE AND PRESENT. 1220 PATIENT TOLERATING PEPSI AND MUFFIN WITHOUT NAUSEA OR DIFFICULTY SWALLOWING (EGD ONLY). 1235 IN ROOM SPEAKING WITH PATIENT. 1245 D/C INSTRUCTIONS REVIEWED WITH PATIENT. PT VERBALIZED UNDERSTANDING AND A COPY OF INSTRUCTIONS PROVIDED IN D/C FOLDER. 1300 PATIENT DRESSES SELF. 1325 PATIENT DISCHARGED FROM UNIT VIA W/C TO A PERSONAL VEHICLE. PT LEFT HOSPITAL IN STABLE CONDITION.
== END 2023-09-08 13:25 | disposition home or self-care (01) ==
LOC: SDCO 09:58
DX: Z12.11 Encounter for screening for malignant neoplasm of colon (principal); D12.2 Benign neoplasm of ascending colon; D12.4 Benign neoplasm of descending colon; K64.0 First degree hemorrhoids; K57.30 Diverticulosis of large intestine without perforation or abscess without bleeding; Z85.3 Personal history of malignant neoplasm of breast; Z85.828 Personal history of other malignant neoplasm of skin
CPT/HCPCS: J2704; J3010; J7120

== ENCOUNTER 2023-12-12 11:03 | Outpatient (CLI) | payer MEDICARE, OTHER ==
[2023-12-12] VITALS (8 sets, daily range): BP systolic 97–123; BP diastolic 66–96; PULSE 58–65; TEMP 98.1
[~2023-12-12] VITALS: Ht 170.2 cm; Wt 67.0 kg
[~2023-12-12 11:03] MED LIST changes: -LR 1,000 ML IV SCH; -Ondansetron 4 MG/2 ML VIAL IV PRN
[2023-12-12] MEDS ORDERED: Immune Globulin (Gammagard) 30 G/300 ML IV SOLN IV SCH (11:30)
[2023-12-12] MEDS ORDERED: Acetaminophen 325 MG TAB PO ONE (11:30)
[2023-12-12] MEDS ORDERED: diphenhydrAMINE 25 MG CAP PO ONE (11:30)
[2023-12-12 12:56] LABS: BASO # 0.1 K/mm3 (0.0-0.2); EOS # 0.1 K/mm3 (0.0-0.7); EOS % 1.6 % (0.0-4.0); GRAN % 76.7 % (42.2-75.2); HEMATOCRIT 40.1 % (37.0-47.0); LYMPH # 0.7 K/mm3 (1.2-3.4); LYMPH % 14.4 % (20.0-51.0); MEAN CELL VOLUME 87 fl (80.0-100.0); MEAN CORPUSCULAR HEMOGLOBIN 28 pg (27-31); MEAN CORPUSCULAR HGB CONC 32 g/dl (33.0-37.0); MEAN PLATELET VOLUME 12.6 fl (7.4-10.4); MONO # 0.3 K/mm3 (0.1-0.6); MONO % 5.1 % (1.7-9.3); PLATELET COUNT 232 K/mm3 (130-400); RED BLOOD COUNT 4.59 M/mm3 (4.10-5.30); REDCELL DISTRIBUTION WIDTH-CV 15.2 % (11.5-14.5)
[2023-12-12 13:01] LABS: ALBUMIN 3.2 g/dL (3.4-4.8); BILIRUBIN,TOTAL 0.2 mg/dL (0.2-1.2); CALCIUM 9.6 mg/dL (8.4-10.2); CREATININE, serum 1.28 mg/dL (0.57-1.11); POTASSIUM 4.3 mEq/L (3.5-4.5); TOTAL PROTEIN 7.5 g/dl (6.2-8.1)
== END 2023-12-12 14:40 | disposition home or self-care (01) ==
LOC: EUO 11:03
PROVIDERS: Internal Medicine
DX: G61.81 Chronic inflammatory demyelinating polyneuritis (principal)
CPT/HCPCS: J1569

== ENCOUNTER 2024-02-03 13:45 | Outpatient (RCR) | payer MEDICARE, OTHER | END 2024-02-14 | disposition home or self-care (01) | LOC: MKS.ESL.PT | DX: M79.672 Pain in left foot (principal) ==